=== PATIENT | male | born 1970 | race Caucasian/White ===

== ENCOUNTER 2021-06-05 15:58 | Outpatient (REF) | payer MEDICARE, MEDICAID, SELFPAY ==
[2021-06-05 16:49] LABS: Anion Gap 13 (12-20); Blood Urea Nitrogen 15 mg/dL (9-16); Calcium 9.9 mg/dL (8.4-10.2); Carbon Dioxide 32 mmol/L (22-29); Chloride 100 mmol/L (96-108); Estimated Glomerular Filt Rate > 60; Glucose Random 101 mg/dL (60-115); Potassium 4.3 mmol/L (3.3-5.1); Sodium 141 mmol/L (135-145)
[2021-06-05 17:09] LABS: Syphilis Screen Nonreactive (Nonreactive)
[2021-06-05 17:11] LABS: Thyroid Stimulating Hormone 1.56 uIU/mL (0.32-4.0)
[2021-06-05 17:36] LABS: Folate 15.7 ng/mL (> or = 4.0); Vitamin B12 900 pg/mL (200-900)
== END 2021-06-05 15:59 | disposition home or self-care (01) ==
LOC: HO.LAB 15:58
PROVIDERS: PCP Internal Medicine; Visit Provider Psychiatry & Neurology Neurology
DX: F03.90 Unspecified dementia, unspecified severity, without behavioral disturbance, psychotic disturbance, mood disturbance, and anxiety (principal)
CPT/HCPCS: 36415; 80048; 82607; 82746; 84443; 86780

== ENCOUNTER 2021-06-18 10:45 | Outpatient (REF) | payer MEDICARE, MEDICAID, SELFPAY ==
--- NOTE | ~2021-06-18 | CT_ITS ---
EXAMINATION: CT HEAD WITHOUT CONTRAST CLINICAL INFORMATION: Dementia. COMPARISON: None TECHNIQUE: Contiguous axial imaging was performed from the skull base to vertex without intravenous administration of contrast. This CT examination was performed using dose optimization techniques as appropriate, variously including the following: *Automated exposure control *Adjustment of mA and/or kV according to patient size (this includes techniques or standardized protocols for targeted exams where dose is matched to indication/reason for exam; i.e. extremities or head) *Use of iterative reconstruction technique DLP: 812 mGy-cm FINDINGS: There is no evidence of acute intracranial hemorrhage or territorial infarction. No abnormal mass effect or midline shift is seen. Martines to white matter differentiation is well preserved. No extra-axial fluid collections are identified. The ventricles are normal in size. There is no abnormal attenuation within the brain parenchyma. There is hyperostosis frontalis interna. The osseous structures and soft tissues are otherwise normal. There is very mild mucosal thickening of the right maxillary sinus. Remaining paranasal sinuses appear clear. The mastoid air cells are well aerated and clear. CT/CT head/brain wo con IMPRESSION: No acute intracranial pathology.
== END 2021-06-18 10:46 | disposition home or self-care (01) ==
LOC: HO.CT 10:45
PROVIDERS: PCP Internal Medicine; Visit Provider Psychiatry & Neurology Neurology
DX: F03.90 Unspecified dementia, unspecified severity, without behavioral disturbance, psychotic disturbance, mood disturbance, and anxiety (principal)
CPT/HCPCS: 70450

== ENCOUNTER 2021-12-04 12:05 | Emergency (ER) | payer MEDICARE, MEDICAID, SELFPAY ==
--- NOTE | ~2021-12-04 | XR_ITS ---
EXAMINATION: XR SHOULDER, RIGHT CLINICAL INFORMATION: Pain COMPARISON: None TECHNIQUE: Three views of the right shoulder. FINDINGS: Bone alignment is normal. No fracture or dislocation is seen. The joint spaces are normal. There is soft tissue calcification adjacent to the greater tuberosity. XR/XR shoulder RT min 2V IMPRESSION: Soft tissue calcification adjacent to the greater tuberosity suggestive of calcific tendinitis or bursitis.
[2021-12-04 12:08] VITALS: BP 112/80; PULSE 109; RESP 16; TEMP 36.1; O2SAT 98; BMI 25.8
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
== END 2021-12-04 14:31 | disposition home or self-care (01) ==
PROVIDERS: Emergency Provider Emergency Medicine Emergency Medical Services; PCP Pediatrics
DX: S46.911A Strain of unspecified muscle, fascia and tendon at shoulder and upper arm level, right arm, initial encounter (principal); M75.51 Bursitis of right shoulder; M79.601 Pain in right arm; X58.XXXA Exposure to other specified factors, initial encounter; Y93.9 Activity, unspecified; Y92.9 Unspecified place or not applicable; Y99.9 Unspecified external cause status; Z79.899 Other long term (current) drug therapy
CPT/HCPCS: 73030; 99283; 99284

== ENCOUNTER 2022-03-09 07:07 | Emergency (ER) | payer MEDICARE, MEDICAID, SELFPAY ==
--- NOTE | 2022-03-09 | ECG_ITS ---
Test Reason : CHEST PAIN Blood Pressure : / mmHG Vent. Rate : 093 BPM Atrial Rate : 093 BPM P-R Int : 158 ms QRS Dur : 106 ms QT Int : 362 ms P-R-T Axes : 069 -36 008 degrees QTc Int : 450 ms Normal sinus rhythm Left axis deviation Minimal voltage criteria for LVH, may be normal variant ( [place] product ) Abnormal ECG When compared with ECG of 27-JUN-2011 13:05, T wave inversion less evident in Inferior leads Referred By: Colton Gray Electronically Signed By:Agustín Fisher
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
[2022-03-09 07:39] VITALS: BP 144/88; PULSE 100; RESP 18; TEMP 36.8; O2SAT 95
[2022-03-09 07:42] VITALS: BP 134/84; BP 142/88; PULSE 112; PULSE 78; RESP 18; TEMP 36.8; O2SAT 95; O2SAT 98; BMI 26.4
[2022-03-09 08:52] LABS: Glucose, Whole Blood 305 mg/dL (60-115)
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
[2022-03-09 09:43] LABS: COVID-19 Test Negative (Negative); IDNOW Serial# 16C4AD1C
== END 2022-03-09 09:39 | disposition home or self-care (01) ==
PROVIDERS: Emergency Provider Emergency Medicine
DX: F03.91 Unspecified dementia, unspecified severity, with behavioral disturbance (principal); F33.1 Major depressive disorder, recurrent, moderate; F25.1 Schizoaffective disorder, depressive type; Z20.822 Contact with and (suspected) exposure to COVID-19; Z79.899 Other long term (current) drug therapy
CPT/HCPCS: 82947; 87635; 93005; 99283

== ENCOUNTER 2022-05-03 15:07 | Emergency (ER) | payer MEDICARE, MEDICAID, SELFPAY ==
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
[2022-05-03 15:47] VITALS: BP 118/78; BP 120/82; PULSE 80; PULSE 90; RESP 18; TEMP 36.6; O2SAT 95; O2SAT 97; BMI 26.1
--- NOTE | 2022-05-03 16:32 | PC.NURSE ---
attempted to contact staff from [facility] in order to continue medications, andres in contacts no longer as employee but he is obtaining contact info and will call us.
--- NOTE | 2022-05-03 18:19 | PHA.MEDREC ---
Pharmacy Consult ? Medication Reconciliation Pharmacy has completed the medication reconciliation. Completed med rec based on claim history. Patients alf was supposed to call, hasnt yet. Pharmacy closed until Thursday likely due to holiday
[2022-05-03 20:58] LABS: MANUAL DIFF FLAG NO
[2022-05-03 21:01] LABS: Basophils Percent Auto 0.4 % (0-2); Eosinophils Absolute Auto 0.1 X10*3/uL (0.0-0.4); Eosinophils Percent Auto 0.9 % (0-4); Hematocrit 40.1 % (42.0-52.0); Hemoglobin 13.5 g/dl (14.0-18.0); Imm Gran Abs Auto 0.03 X10*3/uL (0.00-0.03); Imm Gran Pct Auto 0.6 % (0.0-0.4); Lymphocytes Absolute Auto 2.2 X10*3/uL (1.2-4.9); Mean Corpuscular HGB Conc 33.7 g/dl (31.0-36.0); Mean Corpuscular Hemoglobin 30.8 pg (27.0-33.0); Mean Corpuscular Volume 91.3 fL (80.0-98.0); Mean Platelet Volume 10.9 fL (9.4-12.4); Monocytes Absolute Auto 0.4 X10*3/uL (0.1-1.2); Monocytes Percent Auto 8.1 % (2-11); Neutrophils Absolute Auto 2.7 x10*3/uL (2.0-8.3); Platelet Count 189 X10*3/uL (160-400); Red Blood Count 4.39 X10*6/uL (4.60-5.80); Red Cell Distribution Width 13.1 % (11.0-16.0); White Blood Count 5.4 X10*3/uL (4.8-10.8)
[2022-05-03 21:22] LABS: Alanine Aminotransferase 20 U/L (0-40); Albumin Level 4.6 g/dL (3.5-5.0); Alkaline Phosphatase 89 U/L (39-117); Anion Gap 12 (12-20); Aspartate Amino Transferase 15 U/L (5-37); Bilirubin Total 0.3 mg/dL (0.0-1.0); Blood Urea Nitrogen 15 mg/dL (9-16); Calcium 9.9 mg/dL (8.4-10.2); Carbon Dioxide 32 mmol/L (22-29); Chloride 96 mmol/L (96-108); Estimated Glomerular Filt Rate > 60; Glucose Random 259 mg/dL (60-115); Magnesium 1.8 mg/dL (1.6-2.6); Potassium 4.3 mmol/L (3.3-5.1); Sodium 136 mmol/L (135-145); Total Protein 7.4 g/dL (6.5-8.0)
[2022-05-03 21:26] LABS: Valproate 35.7 mcg/mL (50.0-100.0)
[2022-05-03 21:29] LABS: COVID-19 Test Negative (Negative); IDNOW Serial# 55D5AD1C
[2022-05-03 22:21] LABS: Appearance Urine CLEAR; Color Urine YELLOW; Glucose Urine UA >=1000 MG/DL (NEG); Leukocyte Esterase Urine NEG (NEG); Nitrite Urine NEG (NEG); Urine Blood NEG (NEG); Urine Ketones NEG (NEG); Urine Protein NEG (NEG-TRACE)
[2022-05-03 22:33] LABS: Amphetamine Screen Urine Not Detected (Not Detect); Barbiturates, Urine Not Detected (Not Detect); Benzodiazepines Screen Urine Not Detected (Not Detect); Cannabinoid Screen Urine Not Detected (Not Detect); Cocaine Screen Urine Not Detected (Not Detect); Fentanyl, urine Not Detected (Not Detect); Opiate Screen Urine Not Detected (Not Detect); Phencyclidine Screen Urine Not Detected (Not Detect)
[2022-05-03 23:19] LABS: RBC Urine 0-2 /HPF (0); Squamous Epithelial Cell Urine TRACE /LPF; WBC Urine 0 /HPF (0-4)
--- NOTE | 2022-05-04 | ECG_ITS ---
Test Reason : MED CLEARANCE Blood Pressure : / mmHG Vent. Rate : 080 BPM Atrial Rate : 080 BPM P-R Int : 164 ms QRS Dur : 110 ms QT Int : 408 ms P-R-T Axes : 062 -34 -02 degrees QTc Int : 470 ms Normal sinus rhythm Left axis deviation Minimal voltage criteria for LVH, may be normal variant ( [place] product ) Abnormal ECG When compared with ECG of 09-MAR-2022 07:36, No significant change was found Referred By: Zaira Alvarado Electronically Signed By:KIMBERLY ROSENBERG
[2022-05-04 00:34] VITALS: BP 127/82; PULSE 84; RESP 16; TEMP 36.4; O2SAT 99
[2022-05-04 01:06] LABS: Ethanol < 10 mg/dL
[2022-05-04] MEDS: Levothyroxine Sodium 88 MCG TABLET PO (06:25)
--- NOTE | 2022-05-04 06:40 | PC.NURSE ---
Patient slept through the night, no distress observed/reported, behavior non concerning, medication compliant, disposition per [facility] is section 12 inpatient bed search, vss, will continue to monitor.
--- NOTE | 2022-05-04 07:21 | PC.NURSE ---
patient appears to remain asleep at present respirations are even and unlabored patient appears in no distress
[2022-05-04] MEDS: Benztropine Mesylate 1 MG TABLET PO ×2 (09:06→20:03)
[2022-05-04] MEDS: Docusate Sodium 100 MG/10 ML LIQUID PO (09:10)
[2022-05-04] MEDS: Divalproex Sodium ER 500 MG TAB.ER.24H 1000 MG PO (09:10)
[2022-05-04] MEDS: HaloperidoL 5 MG TABLET PO ×2 (09:10→20:02)
[2022-05-04] MEDS: HaloperidoL 5 MG TABLET 10 MG PO ×2 (09:11→20:02)
[2022-05-04] MEDS: Donepezil HCl 5 MG TABLET PO (09:11)
[2022-05-04] MEDS: OXcarbazepine 150 MG TABLET PO ×2 (09:11→20:02)
[2022-05-04] MEDS: PARoxetine HCL 40 MG TABLET PO (11:07)
[2022-05-04 14:08] VITALS: BP 112/70; PULSE 92; O2SAT 99
--- NOTE | 2022-05-04 16:24 | PC.NURSE ---
panchito asp net programmer from [facility] called to check in, states some signs client may escalate to acting out behavior are talking about money or cars and or having a predatory looking stare per panchito.
--- NOTE | 2022-05-04 18:04 | PC.NURSE ---
patient came out of room after new patient transitioned into pod and asked what t/w was talking about-t/w responded patient in main ED. patient stared irritably at this group underwriter (ironically staff from [facility] just mentioned staring hours ago) and t/w asked if he was hungry, patient responded no and had recently been provided a sandwich- so unclear if this is paranoia or something else. patient had angry look resubmitted his earphones (perhaps overstimulated) will continue to monitor. patient declined offered prn med.
--- NOTE | 2022-05-05 05:43 | PC.NURSE ---
Patient slept through the night, no distress observed/reported, behavior non concerning, medication compliant, disposition per [facility] is section 12 inpatient bed search, vss, will continue to monitor.
[2022-05-05 05:46] VITALS: BP 125/71; PULSE 71; RESP 16; TEMP 36.5; O2SAT 99
[2022-05-05] MEDS: Levothyroxine Sodium 88 MCG TABLET PO (06:15)
--- NOTE | 2022-05-05 07:04 | PC.NURSE ---
patient appears to remain asleep at present respirations are even and unlabored patient appears in no distress
--- NOTE | 2022-05-05 10:39 | PC.NURSE ---
left message at senior care in regards to staff bringing in wellbutrin sr 200 as it is non formulary.
[2022-05-05] MEDS: OXcarbazepine 150 MG TABLET PO (11:07)
[2022-05-05] MEDS: PARoxetine HCL 40 MG TABLET PO (11:07)
[2022-05-05] MEDS: HaloperidoL 5 MG TABLET 10 MG PO ×2 (11:14→20:29)
[2022-05-05] MEDS: Docusate Sodium 100 MG/10 ML LIQUID PO (11:14)
[2022-05-05] MEDS: HaloperidoL 5 MG TABLET PO ×2 (11:14→20:29)
[2022-05-05] MEDS: Donepezil HCl 5 MG TABLET PO (11:15)
[2022-05-05] MEDS: Benztropine Mesylate 1 MG TABLET PO ×2 (11:15→20:29)
[2022-05-05] MEDS: Divalproex Sodium ER 500 MG TAB.ER.24H 1000 MG PO (11:15)
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
[2022-05-05 14:11] LABS: COVID-19 Test Negative (Negative); IDNOW Serial# 55D5AD1C
[2022-05-05 15:29] VITALS: BP 112/69; PULSE 97; RESP 17; TEMP 36.1; O2SAT 98
[2022-05-05 16:03] LABS: Glucose, Whole Blood 219 mg/dL (60-115)
[2022-05-05] MEDS: carBAMazepine 200 MG TABLET PO (20:29)
[2022-05-06] MEDS: Levothyroxine Sodium 88 MCG TABLET PO (06:17)
--- NOTE | 2022-05-06 06:25 | PC.NURSE ---
Patient slept through the night, no distress observed/reported, behavior non concerning, medication compliant, disposition per [facility] is section 12 inpatient bed search, vss, POC at 0620 was 195, will continue to monitor.
[2022-05-06 06:28] LABS: Glucose, Whole Blood 195 mg/dL (60-115)
[2022-05-06 06:31] VITALS: BP 118/77; PULSE 85; RESP 16; TEMP 36.3; O2SAT 100
--- NOTE | 2022-05-06 07:21 | PC.NURSE ---
patient appears to remain asleep at present respirations are even and unlabored patient appears in no distress
[2022-05-06 09:04] VITALS: RESP 18
[2022-05-06] MEDS: Divalproex Sodium ER 500 MG TAB.ER.24H 1000 MG PO (11:10)
[2022-05-06] MEDS: carBAMazepine 200 MG TABLET PO ×2 (11:12→21:44)
[2022-05-06] MEDS: HaloperidoL 5 MG TABLET 10 MG PO ×2 (11:12→21:12)
[2022-05-06] MEDS: HaloperidoL 5 MG TABLET PO ×2 (11:12→21:12)
[2022-05-06] MEDS: PARoxetine HCL 40 MG TABLET PO (11:13)
[2022-05-06] MEDS: Benztropine Mesylate 1 MG TABLET PO ×2 (11:13→21:12)
[2022-05-06] MEDS: Donepezil HCl 5 MG TABLET PO (11:13)
[2022-05-06] MEDS: Acetaminophen 325 MG TABLET 650 MG PO (12:17)
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
[2022-05-06 19:19] VITALS: BP 141/86; PULSE 100; RESP 16; TEMP 36.5; O2SAT 98
[2022-05-07] MEDS: Levothyroxine Sodium 88 MCG TABLET PO (05:37)
[2022-05-07 06:37] LABS: Glucose, Whole Blood 170 mg/dL (60-115)
--- NOTE | 2022-05-07 07:01 | PC.NURSE ---
Patient slept through the night, no distress observed/reported, behavior non concerning, medication compliant, disposition per [facility] is section 12 inpatient bed search, vss, POC at 0633 was 170, will continue to monitor.
--- NOTE | 2022-05-07 07:25 | PC.NURSE ---
patient appears to remain asleep at this time respirations are even and unlabored patient appears in no distress
[2022-05-07 08:09] VITALS: RESP 17
--- NOTE | 2022-05-07 15:10 | PC.NURSE ---
Individual OT tx completed this date. Pt is receptive to sensory tool, word finds, and coloring pages. Attempt made to engage pt however pt continues to state I want to go home.
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
[2022-05-07 19:47] VITALS: BP 128/85; PULSE 117; RESP 16; TEMP 36.3; O2SAT 96
[2022-05-07] MEDS: Benztropine Mesylate 1 MG TABLET PO (20:19)
[2022-05-07] MEDS: HaloperidoL 5 MG TABLET PO (20:19)
[2022-05-07] MEDS: HaloperidoL 5 MG TABLET 10 MG PO (20:19)
[2022-05-07] MEDS: carBAMazepine 200 MG TABLET 400 MG PO (20:33)
[2022-05-08] MEDS: Levothyroxine Sodium 88 MCG TABLET PO (06:17)
[2022-05-08 06:21] VITALS: BP 113/77; PULSE 84; RESP 16; TEMP 35.7; O2SAT 98
[2022-05-08 06:22] LABS: Glucose, Whole Blood 196 mg/dL (60-115)
--- NOTE | 2022-05-08 06:27 | PC.NURSE ---
Patient slept through the night, no distress observed/reported, behavior non concerning, medication compliant, disposition per [facility] is section 12 inpatient bed search, vss, POC at 0618 was 196, will continue to monitor.
[2022-05-08] MEDS: Donepezil HCl 5 MG TABLET PO (10:05)
[2022-05-08] MEDS: HaloperidoL 5 MG TABLET 10 MG PO ×2 (10:05→20:18)
[2022-05-08] MEDS: HaloperidoL 5 MG TABLET PO ×2 (10:05→20:18)
[2022-05-08] MEDS: Divalproex Sodium ER 500 MG TAB.ER.24H PO (10:06)
[2022-05-08] MEDS: PARoxetine HCL 40 MG TABLET PO (10:06)
[2022-05-08] MEDS: Benztropine Mesylate 1 MG TABLET PO ×2 (10:06→20:33)
[2022-05-08] MEDS: carBAMazepine 200 MG TABLET 400 MG PO ×2 (10:06→20:18)
--- NOTE | 2022-05-08 10:48 | PC.NURSE ---
Pt has been in room mostly since this RN arrival at 7am. Was not interested in eating breakfast, took meds easily. Stated generally that he feels better . SKin pwd. moves slowly but steady. Awaits placement by N.
--- NOTE | 2022-05-08 14:53 | PC.NURSE ---
Seen by LORETTA.
--- NOTE | 2022-05-08 15:10 | PC.NURSE ---
took first few bites of food today and a cup of coffee followed by visit from Parachutist/Combatant Diver Qualified. Parachutist/Combatant Diver Qualified reports that patient didn't feel much like talking.
--- NOTE | 2022-05-08 15:23 | PC.NURSE ---
Pt meeting with [facility] rep, unable to engage pt in OT tx session this date.
--- NOTE | 2022-05-08 17:13 | PC.NURSE ---
Maria Luisa Tran, cnc lathe programmer states that patient can be discharged back after the nursing home has a meeting. they await details of discharge (new meds) from [facility]. [phone]
--- NOTE | 2022-05-08 18:25 | PC.NURSE ---
pt has been increasingly active, pleasant, taking PO, smiling, joking with staff
[2022-05-08 18:33] LABS: Glucose, Whole Blood 227 mg/dL (60-115)
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
--- NOTE | 2022-05-08 18:44 | MHC.CARE ---
CARE Team calls Maria Luisa, homeland security program specialist to discuss details of discharging pt. Her VM box is full.
[2022-05-09] MEDS: Levothyroxine Sodium 88 MCG TABLET PO (05:36)
[2022-05-09 05:45] VITALS: BP 109/74; PULSE 81; RESP 16; TEMP 36.4; O2SAT 99
[2022-05-09 05:47] LABS: Glucose, Whole Blood 170 mg/dL (60-115)
--- NOTE | 2022-05-09 06:17 | PC.NURSE ---
Patient slept through the night, no distress observed/reported, behavior non concerning, medication compliant, Depakote discontinued, disposition per [facility] is section 12 inpatient bed search, however, patient may be discharged back to senior care, DWIGHT, POC at 0542 was 170, will continue to monitor.
--- NOTE | 2022-05-09 07:10 | PC.NURSE ---
patient appears to remain asleep at present respirations are even and unlabored patient appears in no distress
--- NOTE | 2022-05-09 09:41 | MHC.CARE ---
CARE Team placed call to [employer] electrician constructor supervisor requesting ETA for discharge. She stated that she will call back after a med reconciliation.
--- NOTE | 2022-05-09 13:21 | PC.NURSE ---
Maria Luisa contacted [phone]- No answer
== END 2022-05-09 13:39 | disposition home or self-care (01) ==
PROVIDERS: Physician Assistant; Emergency Provider Emergency Medicine Emergency Medical Services
DX: F25.9 Schizoaffective disorder, unspecified (principal); F79 Unspecified intellectual disabilities; Z20.822 Contact with and (suspected) exposure to COVID-19; F32.A Depression, unspecified; F91.9 Conduct disorder, unspecified; E11.9 Type 2 diabetes mellitus without complications; I10 Essential (primary) hypertension; Z79.899 Other long term (current) drug therapy
CPT/HCPCS: 36415; 80053; 80164; 80307; 81001; 82077; 82947; 83735; 85025; 87635; 93005; 99285

== ENCOUNTER 2022-05-15 13:44 | Outpatient (REF) | payer MEDICARE, MEDICAID, SELFPAY ==
[2022-05-15 13:59] LABS: MANUAL DIFF FLAG NO
[2022-05-15 14:41] LABS: Basophils Percent Auto 0.4 % (0-2); Eosinophils Absolute Auto 0.2 X10*3/uL (0.0-0.4); Eosinophils Percent Auto 3.5 % (0-4); Hematocrit 39.2 % (42.0-52.0); Hemoglobin 13.4 g/dl (14.0-18.0); Imm Gran Abs Auto 0.01 X10*3/uL (0.00-0.03); Imm Gran Pct Auto 0.2 % (0.0-0.4); Lymphocytes Absolute Auto 2.2 X10*3/uL (1.2-4.9); Lymphocytes Percent Auto 47.5 % (20-40); Mean Corpuscular HGB Conc 34.2 g/dl (31.0-36.0); Mean Corpuscular Hemoglobin 30.9 pg (27.0-33.0); Mean Corpuscular Volume 90.5 fL (80.0-98.0); Mean Platelet Volume 11.2 fL (9.4-12.4); Monocytes Absolute Auto 0.5 X10*3/uL (0.1-1.2); Monocytes Percent Auto 10.5 % (2-11); Neutrophils Absolute Auto 1.7 x10*3/uL (2.0-8.3); Neutrophils Percent Auto 37.9 % (45-73); Platelet Count 177 X10*3/uL (160-400); Red Blood Count 4.33 X10*6/uL (4.60-5.80); Red Cell Distribution Width 12.3 % (11.0-16.0); White Blood Count 4.6 X10*3/uL (4.8-10.8)
[2022-05-15 15:16] LABS: Carbamazepine Tegretol 11.1 mcg/mL (5.0-12.0)
== END 2022-05-15 13:45 | disposition home or self-care (01) ==
LOC: HO.LAB 13:44
PROVIDERS: Visit Provider Clinical Nurse Specialist Psychiatric/Mental Health, Adult
DX: Z79.899 Other long term (current) drug therapy (principal)
CPT/HCPCS: 36415; 80156; 85025

== ENCOUNTER 2022-05-25 11:11 | Emergency (ER) | payer MEDICARE, MEDICAID, SELFPAY ==
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
[2022-05-25 11:18] VITALS: BP 136/85; PULSE 120; RESP 18; TEMP 36.9; O2SAT 100; BMI 19.8
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
--- NOTE | 2022-05-25 11:25 | PC.NURSE ---
RN aware poc 271
[2022-05-25 11:26] LABS: Glucose, Whole Blood 271 mg/dL (60-115)
[2022-05-25 12:10] LABS: MANUAL DIFF FLAG NO
[2022-05-25 12:11] LABS: Basophils Percent Auto 0.7 % (0-2); Eosinophils Absolute Auto 0.1 X10*3/uL (0.0-0.4); Eosinophils Percent Auto 1.1 % (0-4); Hematocrit 39.5 % (42.0-52.0); Hemoglobin 13.2 g/dl (14.0-18.0); Lymphocytes Absolute Auto 1.4 X10*3/uL (1.2-4.9); Mean Corpuscular HGB Conc 33.4 g/dl (31.0-36.0); Mean Corpuscular Hemoglobin 30.4 pg (27.0-33.0); Mean Platelet Volume 9.2 fL (9.4-12.4); Monocytes Absolute Auto 0.3 X10*3/uL (0.1-1.2); Monocytes Percent Auto 5.7 % (2-11); Neutrophils Absolute Auto 2.8 x10*3/uL (2.0-8.3); Neutrophils Percent Auto 62.5 % (45-73); Platelet Count 332 X10*3/uL (160-400); Red Blood Count 4.34 X10*6/uL (4.60-5.80); Red Cell Distribution Width 12.7 % (11.0-16.0); White Blood Count 4.5 X10*3/uL (4.8-10.8)
[2022-05-25] MEDS: Bacitracin Oint 14 GM TUBE 1 APPL TOPICAL (12:11)
[2022-05-25 12:36] LABS: COVID-19 Test Negative (Negative)
[2022-05-25 12:51] LABS: Ethanol < 10 mg/dL
[2022-05-25 12:54] LABS: Acetaminophen LAB < 1 mcg/mL (<30); Alanine Aminotransferase 19 U/L (0-40); Albumin Level 4.4 g/dL (3.5-5.0); Alkaline Phosphatase 131 U/L (39-117); Anion Gap 16 (12-20); Aspartate Amino Transferase 18 U/L (5-37); Bilirubin Direct < 0.2 mg/dL (0.0-0.5); Bilirubin Total 0.2 mg/dL (0.0-1.0); Blood Urea Nitrogen 15 mg/dL (9-16); Calcium 9.5 mg/dL (8.4-10.2); Carbon Dioxide 26 mmol/L (22-29); Chloride 101 mmol/L (96-108); Creatinine Clr Calc Pharmacy 72.3; Estimated Glomerular Filt Rate > 60; Glucose Random 287 mg/dL (60-115); Potassium 4.7 mmol/L (3.3-5.1); Salicylate < 5.0 mg/dL (15-30); Sodium 138 mmol/L (135-145); Total Protein 7.5 g/dL (6.5-8.0)
--- NOTE | 2022-05-25 15:21 | PHA.MEDREC ---
Pharmacy Consult ? Medication Reconciliation Pharmacy has completed the medication reconciliation. Patient was sent with list from [facility]; [facility]. Kemi Fleming, [employer]
--- NOTE | 2022-05-25 15:30 | PC.NURSE ---
smart sheet completed
--- NOTE | 2022-05-25 20:30 | PC.NURSE ---
Keyona from care team at bedside speaking with patient.
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
--- NOTE | 2022-05-25 21:42 | PC.NURSE ---
patient moved to ED bed 14
[2022-05-25] MEDS: HaloperidoL 5 MG TABLET 10 MG PO (21:51)
[2022-05-25] MEDS: HaloperidoL 5 MG TABLET PO (21:52)
[2022-05-25] MEDS: Benztropine Mesylate 1 MG TABLET PO (21:52)
[2022-05-25 23:37] VITALS: BP 124/78; PULSE 102; RESP 18; TEMP 36.3; O2SAT 96
--- NOTE | 2022-05-25 23:48 | PC.NURSE ---
[facility] referral completed by this RN, no assessment ocumented by previous shift RN. pt resting comfortably at this time, all safety measures maintained
[2022-05-26 05:55] VITALS: RESP 16
[2022-05-26 07:33] VITALS: BP 123/71; PULSE 88; RESP 18; TEMP 36.6; O2SAT 96
[2022-05-26] MEDS: LORazepam 1 MG TABLET PO (10:19)
[2022-05-26] MEDS: HaloperidoL 5 MG TABLET PO ×2 (10:20→20:47)
[2022-05-26] MEDS: Docusate Sodium 100 MG/10 ML LIQUID PO (10:20)
[2022-05-26] MEDS: Donepezil HCl 5 MG TABLET PO (10:20)
[2022-05-26] MEDS: HaloperidoL 5 MG TABLET 10 MG PO ×2 (10:20→20:47)
[2022-05-26] MEDS: Benztropine Mesylate 1 MG TABLET PO ×2 (10:20→20:47)
[2022-05-26 11:46] VITALS: BP 113/71; PULSE 102; RESP 15; O2SAT 96
[2022-05-26] MEDS: carBAMazepine 200 MG TABLET 400 MG PO (12:07)
[2022-05-26] MEDS: PARoxetine HCL 40 MG TABLET PO (12:07)
--- NOTE | 2022-05-26 13:18 | MHC.CARE ---
CARE spoke with Fariha manuel ([phone]) who is covering the staff. She stated Pt overall has been doing well with intermittent medication compliance recently. She did not report other behavioral outbursts. She expressed concern that she wanted Pt sectioned and t/w explained limitations regarding the ED. Plan for psychiatric to be consulted regarding plan of care.
--- NOTE | 2022-05-26 14:30 | PC.NURSE ---
Pt seen this date for individual OT tx session. Pt denies and feelings of anger/aggression and states he feels better . Translation provided by Georgian speaking staff member. Pt provided with sensory item and sticker puzzle to complete with assistance from caregiver.
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
[2022-05-26 15:35] VITALS: BP 112/78; PULSE 101; RESP 16; O2SAT 100
[2022-05-26] MEDS: Ibuprofen 200 MG TABLET PO (17:26)
--- NOTE | 2022-05-26 17:48 | MHC.CARE ---
CARE Team reaches out to Fariha from pt's care home who reports that medication changes require order and requests TW to call their nurse, Sasha [phone]; plan is for Sasha to email an order for ED provider to sign and then pt can discharge back to with the staff who are present here with him in the ED.
--- NOTE | 2022-05-26 19:00 | MHC.CARE ---
CARE Team coordinates d/c plan with Sasha Poole [phone] nursing resident from [facility]. Plan is for pt to get him 2100 dose of Zyprexa 5mg and then discharge home with the staff member who is currently present in the ED. Rob Black has put in script at [facility]. Sasha reports that pt needs a buckle arabella to safely transport back to the senior care. Plan is for the staff member here in the ED to go to the senior care and get the buckle arabella and return to the ED and transport pt back to the senior care at 2100. Dr. Gill has signed order for Zyprexa and this will be given to the senior care staff to take.
[2022-05-26] MEDS: OLANZapine 5 MG TABLET PO (20:47)
== END 2022-05-26 21:13 | disposition home or self-care (01) ==
PROVIDERS: Nurse Practitioner Family; Emergency Provider Emergency Medicine
DX: S22.41XA Multiple fractures of ribs, right side, initial encounter for closed fracture (principal); F79 Unspecified intellectual disabilities; F25.0 Schizoaffective disorder, bipolar type; W19.XXXA Unspecified fall, initial encounter; Y93.9 Activity, unspecified; Y92.9 Unspecified place or not applicable; Y99.9 Unspecified external cause status; Z20.822 Contact with and (suspected) exposure to COVID-19; Z79.899 Other long term (current) drug therapy
CPT/HCPCS: 36415; 71101; 80048; 80076; 80143; 80179; 80307; 82077; 82947; 85025; 87635; 99285

== ENCOUNTER 2022-08-15 13:58 | Emergency (ER) | payer MEDICARE, MEDICAID, SELFPAY ==
--- NOTE | 2022-08-15 | ECG_ITS ---
Test Reason : CHEST PAIN Blood Pressure : / mmHG Vent. Rate : 089 BPM Atrial Rate : 089 BPM P-R Int : 166 ms QRS Dur : 116 ms QT Int : 370 ms P-R-T Axes : 061 -34 -05 degrees QTc Int : 450 ms Normal sinus rhythm Left anterior fascicular block Intra-ventricular conduction delay Nonspecific T wave abnormality Abnormal ECG When compared with ECG of 04-MAY-2022 10:01, No significant change was found Referred By: Alecia Perez Electronically Signed By:HEMALATHA CORNELIUS MD
--- NOTE | ~2022-08-15 | CT_ITS ---
EXAMINATION: CT ABDOMEN AND PELVIS WITH CONTRAST CLINICAL INFORMATION: Abdominal pain, hyperglycemia COMPARISON: None TECHNIQUE: Multidetector volumetric images were obtained from the superior aspect of the liver through the pubic symphysis following administration 85 mL of Omnipaque 350 intravenous contrast. Sagittal and coronal reformatted images were obtained on the technologist's workstation. Oral contrast: No This CT examination was performed using dose optimization techniques as appropriate, variously including the following: *Automated exposure control *Adjustment of mA and/or kV according to patient size (this includes techniques or standardized protocols for targeted exams where dose is matched to indication/reason for exam; i.e. extremities or head) *Use of iterative reconstruction technique DLP: 452 mGy-cm FINDINGS: Motion degraded exam limiting evaluation, particularly involving the pancreas, spleen, liver, and adrenal glands. LUNG BASES: Unremarkable. ABDOMINAL AND PELVIC WALL: Unremarkable. LIVER AND BILIARY TREE: Hypoattenuating hepatic parenchyma compatible with hepatic steatosis. GALLBLADDER: Status post cholecystectomy. PANCREAS: Unremarkable. SPLEEN: Unremarkable. ADRENAL GLANDS: Unremarkable. KIDNEYS AND URETERS: Unremarkable. GASTROINTESTINAL TRACT: Desiccated stool ball within the rectum measuring approximately 6.1 cm with mild rectal wall thickening. Overall large colonic stool burden. Colonic diverticulosis without evidence of diverticulitis. Normal appendix. VASCULAR: Unremarkable. LYMPH NODES/PERITONEUM: No lymphadenopathy. FREE FLUID: None. BLADDER: Unremarkable. PELVIC VISCERA: Unremarkable. OSSEOUS STRUCTURES: Unremarkable. CT/CT abdomen pelvis w IV con IMPRESSION: Overall large colonic stool burden with a 6.1 cm desiccated stool ball within the rectum with mild rectal wall thickening, which could potentially reflect stercoral colitis if clinical symptoms are appropriate. Hepatic steatosis. Exam is motion degraded limiting evaluation, particularly of multiple solid organs.
[2022-08-15 14:10] VITALS: BP 129/80; BP 144/78; PULSE 107; PULSE 112; RESP 16; TEMP 36.7; O2SAT 97; BMI 24.3
[2022-08-15 14:37] LABS: Glucose, Whole Blood 404 mg/dL (60-115)
--- NOTE | 2022-08-15 14:49 | PC.NURSE ---
kody pierce) aware of plan of care.
[2022-08-15 14:54] LABS: COVID-19 Test Negative (Negative); IDNOW Serial# 16C4AD1C
[2022-08-15 15:19] LABS: MANUAL DIFF FLAG NO
[2022-08-15 15:20] LABS: Basophils Percent Auto 0.4 % (0-2); Eosinophils Absolute Auto 0.1 X10*3/uL (0.0-0.4); Eosinophils Percent Auto 1.3 % (0-4); Hemoglobin 12.5 g/dl (14.0-18.0); Imm Gran Abs Auto 0.02 X10*3/uL (0.00-0.03); Imm Gran Pct Auto 0.4 % (0.0-0.4); Lymphocytes Absolute Auto 1.7 X10*3/uL (1.2-4.9); Lymphocytes Percent Auto 38.3 % (20-40); Mean Corpuscular HGB Conc 34.7 g/dl (31.0-36.0); Mean Corpuscular Hemoglobin 29.8 pg (27.0-33.0); Mean Corpuscular Volume 85.9 fL (80.0-98.0); Mean Platelet Volume 10.2 fL (9.4-12.4); Monocytes Absolute Auto 0.4 X10*3/uL (0.1-1.2); Neutrophils Absolute Auto 2.3 x10*3/uL (2.0-8.3); Neutrophils Percent Auto 51.6 % (45-73); Platelet Count 166 X10*3/uL (160-400); Red Blood Count 4.19 X10*6/uL (4.60-5.80); Red Cell Distribution Width 12.7 % (11.0-16.0); White Blood Count 4.5 X10*3/uL (4.8-10.8)
[2022-08-15 15:25] LABS: Prothrombin Time 10.9 SEC (10.0-13.1)
--- NOTE | 2022-08-15 15:39 | ED_ITS ---
HPI - Psych General Chief Complaint: General Medical <DOC Addison Last Filed: 08/15/22 20:48> Stated Complaint: AGGRESSIVE TOWARD [facility] <DOC Addison Last Filed: 08/15/22 20:48> Time Seen by Provider: 08/15/22 14:31 <DOC Addison Last Filed: 08/15/22 20:48> Source: patient and EMS <DOC Addison Last Filed: 08/15/22 20:48> Mode of arrival: EMS <DOC Addison Last Filed: 08/15/22 20:48> Limitations: no limitations <DOC Addison Last Filed: 08/15/22 20:48> History of Present Illness HPI Narrative: 51yoM c PMHx of intellectual disability, HTN, DM Type II not on any DM medications x years, hypothyroidism, mood disorder, anxiety, depression, PTSD, cycling bipolar disorder which increases in the spring/ summer and decreases in juan/winter presenting to the ED via EMS after he was sent from the skilled nursing for increased aggression toward the staff and chasing the staff for the past 2 days. when I discussed this with the patient he reports that someone in the skilled nursing is trying to take my house . I am unsure what he means by this. Otherwise he is endorsing a sore throat, body aches that are generalized t hroughout the entire body and abdominal pain. He denies any fevers, chills, dizziness, headaches, neck pain/ stiffness, trouble swallowing or breathing, nausea / vomiting, nasal congestion / rhinorrhea, chest pain or shortness of breath, dyspnea on exertion, orthopnea, palpitations, paresthesias, radiation of the abdominal pain, back pain, dysuria, hematuria, abnormal penile discharge, black or bloody stools, rashes, recent falls or trauma, lower extremity more calf tenderness or any other symptoms complaints or concerns at this time. <DOC Addison Last Filed: 08/15/22 20:48> MD complaint: other ( Aggressive behaviors) <DOC Addison Last Filed: 08/15/22 20:48> Onset (ago): day(s) (2) <DOC Addison Last Filed: 08/15/22 20:48> Duration: constant <DOC Addison Last Filed: 08/15/22 20:48> History of same: Yes <DOC Addison Last Filed: 08/15/22 20:48> Relieving factors: none <DOC Addison Last Filed: 08/15/22 20:48> Exacerbating factors: other ( see above) <DOC Addison Last Filed: 08/15/22 20:48> Associated psychiatric symptoms: none <DCO Addison Last Filed: 08/15/22 20:48> Associated symptoms: other ( generalized body aches, sore throat and abdominal pain) <DOC Addison Last Filed: 08/15/22 20:48> Treatments prior to arrival: none <DOC Addison Last Filed: 08/15/22 20:48> Related Data Home Medications: Home Medications Medication Instructions Recorded Confirmed benztropine 1 mg tablet 1 tab PO BID 05/03/22 08/15/22 docusate sodium 50 mg/5 mL oral 10 ml PO DAILY 05/03/22 08/15/22 liquid (Docu) donepezil 5 mg tablet 1 tab PO DAILY 05/03/22 08/15/22 haloperidol 10 mg tablet 1 tab PO BID 05/03/22 08/15/22 haloperidol 5 mg tablet 1 tab PO BID 05/03/22 08/15/22 levothyroxine 88 mcg tablet 1 tab PO DAILY 05/03/22 08/15/22 lorazepam 1 mg tablet 1 tab PO DAILY 05/03/22 08/15/22 paroxetine HCl 40 mg tablet 1 tab PO DAILY 05/03/22 08/15/22 acetaminophen 325 mg tablet 650 mg PO Q6H PRN PAIN/FEVER 05/25/22 08/15/22 (Tylenol) ammonium lactate 12 % topical cream 1 applic topical DAILY PRN Dry Skin 05/25/22 08/15/22 guaifenesin 100 mg/5 mL oral liquid 200 mg PO Q4H PRN Cough 05/25/22 08/15/22 ibuprofen 200 mg tablet 200 mg PO Q4H PRN PAIN/FEVER 05/25/22 08/15/22 lorazepam 1 mg tablet 1 tab PO Q6H PRN Anxiety 05/25/22 08/15/22 Previous Rx's Medication Instructions Recorded carbamazepine 200 mg tablet 400 mg PO BID #60 tabs 05/08/22 olanzapine 5 mg tablet 5 mg PO BID #14 tabs 05/26/22 <DOC Addison - Last Filed: 08/15/22 20:48> Allergies/Adverse Reactions: Allergies Allergy/AdvReac Type Severity Reaction Status Date / Time latex [LATEX] Allergy Unknown NOT Verified 05/08/22 15:23 APPLICABLE From SEROQUEL Allergy Unknown UNKNOWN Uncoded 07/19/20 15:21 SEASONAL ALLERGIES Allergy Unknown UNKNOWN Uncoded 07/19/20 15:21 <DOC Addison - Last Filed: 08/15/22 20:48> Review of Systems Review of Systems: Constitutional : No Fever, No Chills ENT/Mouth : + sore throat, No Ear Pain, No Nasal Congestion, No sore throat Eyes: No Eye Pain, No Swelling, No Redness Cardiovascular : No Chest Pain, No SOB Respiratory : No Cough, No Sputum, No Dyspnea Gastrointestinal : + abdominal pain, No ingestions, No Nausea, No Vomiting, No Diarrhea, No Hematochezia, No Melena Genitourinary : No Dysuria, No Urinary Frequency, No Hematuria Musculoskeletal : No Myalgias Skin : No Skin Lesions, No rash Neuro : No Weakness, No Numbness, No Paresthesias, No Dizziness, No Headache Psych : + aggression/Anxiety, No Depression, No SI, No thoughts of self injury, No HI, No AVH, Heme/Lymph: No Lymphadenopathy Endocrine : No Polyuria, No Polydipsia <DOC Addison - Last Filed: 08/15/22 20:48> Yes all other systems are reviewed and are negative <DOC Addison - Last Filed: 08/15/22 20:48> [facility] Past Medical History Attestation statement: The following information was validated with the patient. <DOC Addison Last Filed: 08/15/22 20:48> Source: old records reviewed and nursing notes reviewed <DOC Addison Last Filed: 08/15/22 20:48> Medical History: Medical History Dementia Depressive disorder Diabetes Diabetic retinopathy Hypothyroid Mild intellectual disabilities Psychotic disorder PTSD (post-traumatic stress disorder) Schizoaffective disorder, bipolar type <DOC Addison - Last Filed: 08/15/22 20:48> Social History Social History: Social History Alcohol intake: unknown Patient Tobacco Use Status: Tobacco use Unknown Use of substances other than those prescribed or required for medical reasons: Unknown Advance Directives: No Advance Directives Information Provided: Yes <DOC Addison - Last Filed: 08/15/22 20:48> Physical Exam Vital Signs: Vital Signs: Last Vital Signs Temp 97.3 F 08/16/22 09:39 Pulse 90 08/16/22 09:39 Resp 20 08/16/22 09:39 BP 137/93 H 08/16/22 09:39 Pulse Ox 95 08/16/22 09:39 O2 Del Method 08/16/22 09:39 BMI result Body Mass Index 24.3 vital signs have been reviewed as normal and appeared to be correct. Blood pressure normal. Heart rate normal. Respiration rate normal. Temperature normal. Oxygen saturation normal. <DOC Addison - Last Filed: 08/15/22 20:48> Vital Signs: Last Vital Signs Temp 97.3 F 08/16/22 09:39 Pulse 90 08/16/22 09:39 Resp 20 08/16/22 09:39 BP 137/93 H 08/16/22 09:39 Pulse Ox 95 08/16/22 09:39 O2 Del Method 08/16/22 09:39 BMI result Body Mass Index 24.3 <Jamila Gill MD - Last Filed: 08/16/22 10:47> Appearance: Alert. Oriented X3. No acute distress. Head: Normal external exam. Normocephalic. Atraumatic. No Chapa signs noted. No raccoon eyes noted Eyes: PERRLA. EOMI. Conjunctiva and sclera normal. Eyelids normal. ENT: EAC normal. TM's Normal. Pharynx normal. Uvula midline. Moist mucous membranes. No trismus noted. No drooling noted. No muffled voice noted. Neck: Normal inspection. Neck supple. FROM. No adenopathy. Thyroid Normal. No meningeal signs. No neck mass noted. CVS: Normal heart rate and rhythm. Heart sound normal. No murmurs noted. Pulses normal throughout. Respiratory: No respiratory distress. Painless inspiration. Breath sounds normal. No wheezes/rales/rhonchi noted. Chest nontender. No accessory muscle usage noted or decreased air movement noted. Abdomen: Soft and mild tenderness to palpation to the left upper quadrant and diffusely. Bowel sounds normal in all 4 quadrants. No distention noted. No organomegaly noted. No visible injury noted. Back: No CVA tenderness. Full range of motion noted. Skin: Skin warm and dry. Normal skin color. Normal skin turgor. No rashes/lesions/lacerations noted. Extremities: No lower extremity edema. Extremities exhibit normal range of mo tion. Extremities nontender. Neuro: Oriented X 3. No motor deficit. No sensory deficit. Reflexes normal. CN's II-XII intact bilaterally? Psych: Appearance grossly normal, well-kept, mental status normal, speech and movement normal, speech clear. Is cooperative. <DOC Addison - Last Filed: 08/15/22 20:48> Course Course Course Narrative: 14:45pm - 51yoM c PMHx of intellectual disability, HTN, DM Type II not on any DM medications x years, hypothyroidism, mood disorder, anxiety, depression, PTSD, cycling bipolar disorder which increases in the spring/ summer and decreases in juan/winter presenting to the ED via EMS after he was sent from the skilled nursing for increased aggression toward the staff and chasing the staff for the past 2 days. when I discussed this with the patient he reports that someone in the skilled nursing is trying to take my house . I am unsure what he means by this. Otherwise he is endorsing a sore throat, body aches that are generalized throughout the entire body and abdominal pain. POC at 404. Plan: therefore at this time will obtain labs, UA, chest x-ray, EKG, drugs of abuse screen, COVID swab. Provide a L of IV fluids with 500 mg of metformin re- evaluate. <DOC Addison - Last Filed: 08/15/22 20:48> Reevaluation(s) Reevaluation #1: - labs reviewed patient with mild baseline anemia which is similar compared to prior - white blood cell count 4000 which is similar when compared to prior. Repeat POC after 1 L of IV fluids and 500 mg of metformin 292. Alkaline phosphate 168. Otherwise all other labs are within normal limits. Patient negative for all drugs. - Patient negative for COVID. - Patient negative for strep - CT scan abdomen pelvis with IV contrast revealed large colonic stool burden with a 6.1 cm desiccated stool ball within the rectum with mild rectal wall thickening. Therefore I consulted with Dr. Oviedo and he reported that the patient only needs this impaction and he will eventually need an outpatient colonoscopy. - Therefore patient now status post this impaction. Patient tolerated procedure well. No complications. Therefore he was placed back into the Pod IV was removed. And patient will be evaluated by crisis. Patient is placed in Physician observation at this time to be evaluated by crisis at this time he is alert oriented x3. Not in any acute distress. Normal steady gait. Has been cooperative the entire time he has been here in the ER. <DOC Addison - Last Filed: 08/15/22 20:48> Time: 19:16 <DOC Addison - Last Filed: 08/15/22 20:48> Reevaluation #2: Has been evaluated by N for aggression, felt that the patient need to come in as inpatient. Vital signs stable, no event overnight reported by the nurse, continue with physician observation. <Jamila Gill MD - Last Filed: 08/16/22 10:47> Time: 10:46 <Jamila Gill MD - Last Filed: 08/16/22 10:47> MDM - Psych Medical Records Attestation: I reviewed the patient's medical records. <DOC Addison - Last Filed: 08/15/22 20:48> Lab Data Attestation: I reviewed the patient's lab results. <DOC Addison - Last Filed: 08/15/22 20:48> Result diagrams: : 08/15/22 15:14 08/15/22 15:14 <DOC Addison - Last Filed: 08/15/22 20:48> Labs: Lab Results 08/15/22 08/15/22 08/15/22 Range/Units 14:33 14:33 15:14 WBC 4.5 L (4.8-10.8) X10*3/uL RBC 4.19 L (4.60-5.80) X10*6/uL Hgb 12.5 L (14.0-18.0) g/dl Hct 36.0 L (42.0-52.0) % MCV 85.9 (80.0-98.0) fL MCH 29.8 (27.0-33.0) pg MCHC 34.7 (31.0-36.0) g/dl RDW 12.7 (11.0-16.0) % Plt Count 166 D (160-400) X10*3/uL MPV 10.2 (9.4-12.4) fL Immature Gran % (Auto) 0.4 (0.0-0.4) % Neut % (Auto) 51.6 (45-73) % Lymph % (Auto) 38.3 (20-40) % [place] % (Auto) 8.0 (2-11) % Eos % (Auto) 1.3 (0-4) % Baso % (Auto) 0.4 (0-2) % Lymph # (Auto) 1.7 (1.2-4.9) X10*3/uL [place] # (Auto) 0.4 (0.1-1.2) X10*3/uL Eos # (Auto) 0.1 (0.0-0.4) X10*3/uL Baso # (Auto) 0.0 (0.0-0.2) X10*3/uL Abs Immat Gran (auto) 0.02 (0.00-0.03) X10*3/uL Absolute Neuts (auto) 2.3 (2.0-8.3) x10*3/uL Absolute Nucleated RBC 0.000 (0.0-0.012) X10*3/uL Nucleated RBC % (auto) 0.0 (0.0-0.2) /100WBC PT (10.0-13.1) SEC INR (0.9-1.1) Sodium (135-145) mmol/L Potassium (3.3-5.1) mmol/L Chloride (96-108) mmol/L Carbon Dioxide (22-29) mmol/L Anion Gap (12-20) BUN (9-16) mg/dL Creatinine (0.5-1.4) mg/dL Estim Creat Clear Calc Estimated GFR POC Glucose 404 H* (60-115) mg/dL Random Glucose (60-115) mg/dL Calcium (8.4-10.2) mg/dL Magnesium (1.6-2.6) mg/dL Total Bilirubin (0.0-1.0) mg/dL AST (5-37) U/L ALT (0-40) U/L Alkaline Phosphatase (39-117) U/L Lactate Dehydrogenase (118-273) U/L Troponin I High Sens (<3.5-35.0) ng/L Total Protein (6.5-8.0) g/dL Albumin (3.5-5.0) g/dL Amylase (28-100) U/L Lipase (8-78) U/L TSH (0.32-4.0) uIU/mL Urine Color Urine Appearance Urine pH (5.0-9.0) Ur Specific [place] (1.005-1.025) Urine Protein (Neg-Trace) mg/dL Urine Glucose (UA) (Negative) mg/dL Urine Ketones (Negative) mg/dL Urine Blood (Negative) Urine Nitrite (Negative) Ur Leukocyte Esterase (Negative) Urine RBC (0-2) /HPF Urine WBC (0-5) /HPF Ur Squamous Epith Cells (0-2) /HPF Urine Bacteria (None Seen) Hyaline Casts (0-2) /LPF Urine Yeast Urine Opiates Screen (Not Detect) Urine Fentanyl Screen (Not Detect) Ur Barbiturates Screen (Not Detect) Ur Phencyclidine Scrn (Not Detect) Ur Amphetamines Screen (Not Detect) U Benzodiazepines Scrn (Not Detect) Urine Cocaine Screen (Not Detect) U Marijuana (THC) Screen (Not Detect) Acetone, Qual (Negative) COVID-19 ([facility]) Negative (Negative) COVID-19 Clin Com See Note S. pyogenes GrpA DUSTIN (Negative) 08/15/22 08/15/22 08/15/22 Range/Units 15:14 15:14 15:14 WBC (4.8-10.8) X10*3/uL RBC (4.60-5.80) X10*6/uL Hgb (14.0-18.0) g/dl Hct (42.0-52.0) % MCV (80.0-98.0) fL MCH (27.0-33.0) pg MCHC (31.0-36.0) g/dl RDW (11.0-16.0) % Plt Count (160-400) X10*3/uL MPV (9.4-12.4) fL Immature Gran % (Auto) (0.0-0.4) % Neut % (Auto) (45-73) % Lymph % (Auto) (20-40) % [place] % (Auto) (2-11) % Eos % (Auto) (0-4) % Baso % (Auto) (0-2) % Lymph # (Auto) (1.2-4.9) X10*3/uL [place] # (Auto) (0.1-1.2) X10*3/uL Eos # (Auto) (0.0-0.4) X10*3/uL Baso # (Auto) (0.0-0.2) X10*3/uL Abs Immat Gran (auto) (0.00-0.03) X10*3/uL Absolute Neuts (auto) (2.0-8.3) x10*3/uL Absolute Nucleated RBC (0.0-0.012) X10*3/uL Nucleated RBC % (auto) (0.0-0.2) /100WBC PT 10.9 (10.0-13.1) SEC INR 1.0 (0.9-1.1) Sodium 135 (135-145) mmol/L Potassium 3.9 (3.3-5.1) mmol/L Chloride 97 (96-108) mmol/L Carbon Dioxide 25 (22-29) mmol/L Anion Gap 17 (12-20) BUN 12 (9-16) mg/dL Creatinine 0.90 (0.5-1.4) mg/dL Estim Creat Clear Calc 92.8 Estimated GFR > 60 POC Glucose (60-115) mg/dL Random Glucose 384 H* (60-115) mg/dL Calcium 9.0 (8.4-10.2) mg/dL Magnesium 1.7 (1.6-2.6) mg/dL Total Bilirubin 0.3 (0.0-1.0) mg/dL AST 19 (5-37) U/L ALT 17 (0-40) U/L Alkaline Phosphatase 168 H D (39-117) U/L Lactate Dehydrogenase (118-273) U/L Troponin I High Sens < 3.5 (<3.5-35.0) ng/L Total Protein 7.0 (6.5-8.0) g/dL Albumin 4.2 (3.5-5.0) g/dL Amylase (28-100) U/L Lipase (8-78) U/L TSH 1.20 (0.32-4.0) uIU/mL Urine Color Urine Appearance Urine pH (5.0-9.0) Ur Specific [place] (1.005-1.025) Urine Protein (Neg-Trace) mg/dL Urine Glucose (UA) (Negative) mg/dL Urine Ketones (Negative) mg/dL Urine Blood (Negative) Urine Nitrite (Negative) Ur Leukocyte Esterase (Negative) Urine RBC (0-2) /HPF Urine WBC (0-5) /HPF Ur Squamous Epith Cells (0-2) /HPF Urine Bacteria (None Seen) Hyaline Casts (0-2) /LPF Urine Yeast Urine Opiates Screen (Not Detect) Urine Fentanyl Screen (Not Detect) Ur Barbiturates Screen (Not Detect) Ur Phencyclidine Scrn (Not Detect) Ur Amphetamines Screen (Not Detect) U Benzodiazepines Scrn (Not Detect) Urine Cocaine Screen (Not Detect) U Marijuana (THC) Screen (Not Detect) Acetone, Qual Negative (Negative) COVID-19 ([facility]) (Negative) COVID-19 Clin Com S. pyogenes GrpA DUSTIN (Negative) 08/15/22 08/15/22 08/15/22 Range/Units 15:14 16:52 18:24 WBC (4.8-10.8) X10*3/uL RBC (4.60-5.80) X10*6/uL Hgb (14.0-18.0) g/dl Hct (42.0-52.0) % MCV (80.0-98.0) fL MCH (27.0-33.0) pg MCHC (31.0-36.0) g/dl RDW (11.0-16.0) % Plt Count (160-400) X10*3/uL MPV (9.4-12.4) fL Immature Gran % (Auto) (0.0-0.4) % Neut % (Auto) (45-73) % Lymph % (Auto) (20-40) % [place] % (Auto) (2-11) % Eos % (Auto) (0-4) % Baso % (Auto) (0-2) % Lymph # (Auto) (1.2-4.9) X10*3/uL [place] # (Auto) (0.1-1.2) X10*3/uL Eos # (Auto) (0.0-0.4) X10*3/uL Baso # (Auto) (0.0-0.2) X10*3/uL Abs Immat Gran (auto) (0.00-0.03) X10*3/uL Absolute Neuts (auto) (2.0-8.3) x10*3/uL Absolute Nucleated RBC (0.0-0.012) X10*3/uL Nucleated RBC % (auto) (0.0-0.2) /100WBC PT (10.0-13.1) SEC INR (0.9-1.1) Sodium (135-145) mmol/L Potassium (3.3-5.1) mmol/L Chloride (96-108) mmol/L Carbon Dioxide (22-29) mmol/L Anion Gap (12-20) BUN (9-16) mg/dL Creatinine (0.5-1.4) mg/dL Estim Creat Clear Calc Estimated GFR POC Glucose (60-115) mg/dL Random Glucose (60-115) mg/dL Calcium (8.4-10.2) mg/dL Magnesium (1.6-2.6) mg/dL Total Bilirubin (0.0-1.0) mg/dL AST (5-37) U/L ALT (0-40) U/L Alkaline Phosphatase (39-117) U/L Lactate Dehydrogenase 173 (118-273) U/L Troponin I High Sens (<3.5-35.0) ng/L Total Protein (6.5-8.0) g/dL Albumin (3.5-5.0) g/dL Amylase 39 (28-100) U/L Lipase 35 (8-78) U/L TSH (0.32-4.0) uIU/mL Urine Color Urine Appearance Urine pH (5.0-9.0) Ur Specific [place] (1.005-1.025) Urine Protein (Neg-Trace) mg/dL Urine Glucose (UA) (Negative) mg/dL Urine Ketones (Negative) mg/dL Urine Blood (Negative) Urine Nitrite (Negative) Ur Leukocyte Esterase (Negative) Urine RBC (0-2) /HPF Urine WBC (0-5) /HPF Ur Squamous Epith Cells (0-2) /HPF Urine Bacteria (None Seen) Hyaline Casts (0-2) /LPF Urine Yeast Urine Opiates Screen Not Detected (Not Detect) Urine Fentanyl Screen Not Detected (Not Detect) Ur Barbiturates Screen Not Detected (Not Detect) Ur Phencyclidine Scrn Not Detected (Not Detect) Ur Amphetamines Screen Not Detected (Not Detect) U Benzodiazepines Scrn Not Detected (Not Detect) Urine Cocaine Screen Not Detected (Not Detect) U Marijuana (THC) Screen Not Detected (Not Detect) Acetone, Qual (Negative) COVID-19 ([facility]) (Negative) COVID-19 Clin Com S. pyogenes GrpA DUSTIN Negative (Negative) 08/15/22 08/15/22 08/16/22 Range/Units 18:24 18:32 06:33 WBC (4.8-10.8) X10*3/uL RBC (4.60-5.80) X10*6/uL Hgb (14.0-18.0) g/dl Hct (42.0-52.0) % MCV (80.0-98.0) fL MCH (27.0-33.0) pg MCHC (31.0-36.0) g/dl RDW (11.0-16.0) % Plt Count (160-400) X10*3/uL MPV (9.4-12.4) fL Immature Gran % (Auto) (0.0-0.4) % Neut % (Auto) (45-73) % Lymph % (Auto) (20-40) % [place] % (Auto) (2-11) % Eos % (Auto) (0-4) % Baso % (Auto) (0-2) % Lymph # (Auto) (1.2-4.9) X10*3/uL [place] # (Auto) (0.1-1.2) X10*3/uL Eos # (Auto) (0.0-0.4) X10*3/uL Baso # (Auto) (0.0-0.2) X10*3/uL Abs Immat Gran (auto) (0.00-0.03) X10*3/uL Absolute Neuts (auto) (2.0-8.3) x10*3/uL Absolute Nucleated RBC (0.0-0.012) X10*3/uL Nucleated RBC % (auto) (0.0-0.2) /100WBC PT (10.0-13.1) SEC INR (0.9-1.1) Sodium (135-145) mmol/L Potassium (3.3-5.1) mmol/L Chloride (96-108) mmol/L Carbon Dioxide (22-29) mmol/L Anion Gap (12-20) BUN (9-16) mg/dL Creatinine (0.5-1.4) mg/dL Estim Creat Clear Calc Estimated GFR POC Glucose 292 H 254 H (60-115) mg/dL Random Glucose (60-115) mg/dL Calcium (8.4-10.2) mg/dL Magnesium (1.6-2.6) mg/dL Total Bilirubin (0.0-1.0) mg/dL AST (5-37) U/L ALT (0-40) U/L Alkaline Phosphatase (39-117) U/L Lactate Dehydrogenase (118-273) U/L Troponin I High Sens (<3.5-35.0) ng/L Total Protein (6.5-8.0) g/dL Albumin (3.5-5.0) g/dL Amylase (28-100) U/L Lipase (8-78) U/L TSH (0.32-4.0) uIU/mL Urine Color Yellow Urine Appearance Clear Urine pH 6.0 (5.0-9.0) Ur Specific [place] <= 1.005 (1.005-1.025) Urine Protein Negative (Neg-Trace) mg/dL Urine Glucose (UA) >=1000 H (Negative) mg/dL Urine Ketones Negative (Negative) mg/dL Urine Blood Negative (Negative) Urine Nitrite Negative (Negative) Ur Leukocyte Esterase Negative (Negative) Urine RBC 0-2 (0-2) /HPF Urine WBC 0-5 (0-5) /HPF Ur Squamous Epith Cells 0-2 (0-2) /HPF Urine Bacteria None Seen (None Seen) Hyaline Casts 0-2 (0-2) /LPF Urine Yeast Present Urine Opiates Screen (Not Detect) Urine Fentanyl Screen (Not Detect) Ur Barbiturates Screen (Not Detect) Ur Phencyclidine Scrn (Not Detect) Ur Amphetamines Screen (Not Detect) U Benzodiazepines Scrn (Not Detect) Urine Cocaine Screen (Not Detect) U Marijuana (THC) Screen (Not Detect) Acetone, Qual (Negative) COVID-19 ([facility]) (Negative) COVID-19 Clin Com S. pyogenes GrpA DUSTIN (Negative) <DOC Addison - Last Filed: 08/15/22 20:48> Lab Results 08/15/22 08/15/22 08/15/22 Range/Units 14:33 14:33 15:14 WBC 4.5 L (4.8-10.8) X10*3/uL RBC 4.19 L (4.60-5.80) X10*6/uL Hgb 12.5 L (14.0-18.0) g/dl Hct 36.0 L (42.0-52.0) % MCV 85.9 (80.0-98.0) fL MCH 29.8 (27.0-33.0) pg MCHC 34.7 (31.0-36.0) g/dl RDW 12.7 (11.0-16.0) % Plt Count 166 D (160-400) X10*3/uL MPV 10.2 (9.4-12.4) fL Immature Gran % (Auto) 0.4 (0.0-0.4) % Neut % (Auto) 51.6 (45-73) % Lymph % (Auto) 38.3 (20-40) % [place] % (Auto) 8.0 (2-11) % Eos % (Auto) 1.3 (0-4) % Baso % (Auto) 0.4 (0-2) % Lymph # (Auto) 1.7 (1.2-4.9) X10*3/uL [place] # (Auto) 0.4 (0.1-1.2) X10*3/uL Eos # (Auto) 0.1 (0.0-0.4) X10*3/uL Baso # (Auto) 0.0 (0.0-0.2) X10*3/uL Abs Immat Gran (auto) 0.02 (0.00-0.03) X10*3/uL Absolute Neuts (auto) 2.3 (2.0-8.3) x10*3/uL Absolute Nucleated RBC 0.000 (0.0-0.012) X10*3/uL Nucleated RBC % (auto) 0.0 (0.0-0.2) /100WBC PT (10.0-13.1) SEC INR (0.9-1.1) Sodium (135-145) mmol/L Potassium (3.3-5.1) mmol/L Chloride (96-108) mmol/L Carbon Dioxide (22-29) mmol/L Anion Gap (12-20) BUN (9-16) mg/dL Creatinine (0.5-1.4) mg/dL Estim Creat Clear Calc Estimated GFR POC Glucose 404 H* (60-115) mg/dL Random Glucose (60-115) mg/dL Calcium (8.4-10.2) mg/dL Magnesium (1.6-2.6) mg/dL Total Bilirubin (0.0-1.0) mg/dL AST (5-37) U/L ALT (0-40) U/L Alkaline Phosphatase (39-117) U/L Lactate Dehydrogenase (118-273) U/L Troponin I High Sens (<3.5-35.0) ng/L Total Protein (6.5-8.0) g/dL Albumin (3.5-5.0) g/dL Amylase (28-100) U/L Lipase (8-78) U/L TSH (0.32-4.0) uIU/mL Urine Color Urine Appearance Urine pH (5.0-9.0) Ur Specific [place] (1.005-1.025) Urine Protein (Neg-Trace) mg/dL Urine Glucose (UA) (Negative) mg/dL Urine Ketones (Negative) mg/dL Urine Blood (Negative) Urine Nitrite (Negative) Ur Leukocyte Esterase (Negative) Urine RBC (0-2) /HPF Urine WBC (0-5) /HPF Ur Squamous Epith Cells (0-2) /HPF Urine Bacteria (None Seen) Hyaline Casts (0-2) /LPF Urine Yeast Urine Opiates Screen (Not Detect) Urine Fentanyl Screen (Not Detect) Ur Barbiturates Screen (Not Detect) Ur Phencyclidine Scrn (Not Detect) Ur Amphetamines Screen (Not Detect) U Benzodiazepines Scrn (Not Detect) Urine Cocaine Screen (Not Detect) U Marijuana (THC) Screen (Not Detect) Acetone, Qual (Negative) COVID-19 ([facility]) Negative (Negative) COVID-19 Clin Com See Note S. pyogenes GrpA DUSTIN (Negative) 08/15/22 08/15/22 08/15/22 Range/Units 15:14 15:14 15:14 WBC (4.8-10.8) X10*3/uL RBC (4.60-5.80) X10*6/uL Hgb (14.0-18.0) g/dl Hct (42.0-52.0) % MCV (80.0-98.0) fL MCH (27.0-33.0) pg MCHC (31.0-36.0) g/dl RDW (11.0-16.0) % Plt Count (160-400) X10*3/uL MPV (9.4-12.4) fL Immature Gran % (Auto) (0.0-0.4) % Neut % (Auto) (45-73) % Lymph % (Auto) (20-40) % [place] % (Auto) (2-11) % Eos % (Auto) (0-4) % Baso % (Auto) (0-2) % Lymph # (Auto) (1.2-4.9) X10*3/uL [place] # (Auto) (0.1-1.2) X10*3/uL Eos # (Auto) (0.0-0.4) X10*3/uL Baso # (Auto) (0.0-0.2) X10*3/uL Abs Immat Gran (auto) (0.00-0.03) X10*3/uL Absolute Neuts (auto) (2.0-8.3) x10*3/uL Absolute Nucleated RBC (0.0-0.012) X10*3/uL Nucleated RBC % (auto) (0.0-0.2) /100WBC PT 10.9 (10.0-13.1) SEC INR 1.0 (0.9-1.1) Sodium 135 (135-145) mmol/L Potassium 3.9 (3.3-5.1) mmol/L Chloride 97 (96-108) mmol/L Carbon Dioxide 25 (22-29) mmol/L Anion Gap 17 (12-20) BUN 12 (9-16) mg/dL Creatinine 0.90 (0.5-1.4) mg/dL Estim Creat Clear Calc 92.8 Estimated GFR > 60 POC Glucose (60-115) mg/dL Random Glucose 384 H* (60-115) mg/dL Calcium 9.0 (8.4-10.2) mg/dL Magnesium 1.7 (1.6-2.6) mg/dL Total Bilirubin 0.3 (0.0-1.0) mg/dL AST 19 (5-37) U/L ALT 17 (0-40) U/L Alkaline Phosphatase 168 H D (39-117) U/L Lactate Dehydrogenase (118-273) U/L Troponin I High Sens < 3.5 (<3.5-35.0) ng/L Total Protein 7.0 (6.5-8.0) g/dL Albumin 4.2 (3.5-5.0) g/dL Amylase (28-100) U/L Lipase (8-78) U/L TSH 1.20 (0.32-4.0) uIU/mL Urine Color Urine Appearance Urine pH (5.0-9.0) Ur Specific [place] (1.005-1.025) Urine Protein (Neg-Trace) mg/dL Urine Glucose (UA) (Negative) mg/dL Urine Ketones (Negative) mg/dL Urine Blood (Negative) Urine Nitrite (Negative) Ur Leukocyte Esterase (Negative) Urine RBC (0-2) /HPF Urine WBC (0-5) /HPF Ur Squamous Epith Cells (0-2) /HPF Urine Bacteria (None Seen) Hyaline Casts (0-2) /LPF Urine Yeast Urine Opiates Screen (Not Detect) Urine Fentanyl Screen (Not Detect) Ur Barbiturates Screen (Not Detect) Ur Phencyclidine Scrn (Not Detect) Ur Amphetamines Screen (Not Detect) U Benzodiazepines Scrn (Not Detect) Urine Cocaine Screen (Not Detect) U Marijuana (THC) Screen (Not Detect) Acetone, Qual Negative (Negative) COVID-19 (EDNA) (Negative) COVID-19 Clin Com S. pyogenes GrpA DUSTIN (Negative) 08/15/22 08/15/22 08/15/22 Range/Units 15:14 16:52 18:24 WBC (4.8-10.8) X10*3/uL RBC (4.60-5.80) X10*6/uL Hgb (14.0-18.0) g/dl Hct (42.0-52.0) % MCV (80.0-98.0) fL MCH (27.0-33.0) pg MCHC (31.0-36.0) g/dl RDW (11.0-16.0) % Plt Count (160-400) X10*3/uL MPV (9.4-12.4) fL Immature Gran % (Auto) (0.0-0.4) % Neut % (Auto) (45-73) % Lymph % (Auto) (20-40) % [place] % (Auto) (2-11) % Eos % (Auto) (0-4) % Baso % (Auto) (0-2) % Lymph # (Auto) (1.2-4.9) X10*3/uL [place] # (Auto) (0.1-1.2) X10*3/uL Eos # (Auto) (0.0-0.4) X10*3/uL Baso # (Auto) (0.0-0.2) X10*3/uL Abs Immat Gran (auto) (0.00-0.03) X10*3/uL Absolute Neuts (auto) (2.0-8.3) x10*3/uL Absolute Nucleated RBC (0.0-0.012) X10*3/uL Nucleated RBC % (auto) (0.0-0.2) /100WBC PT (10.0-13.1) SEC INR (0.9-1.1) Sodium (135-145) mmol/L Potassium (3.3-5.1) mmol/L Chloride (96-108) mmol/L Carbon Dioxide (22-29) mmol/L Anion Gap (12-20) BUN (9-16) mg/dL Creatinine (0.5-1.4) mg/dL Estim Creat Clear Calc Estimated GFR POC Glucose (60-115) mg/dL Random Glucose (60-115) mg/dL Calcium (8.4-10.2) mg/dL Magnesium (1.6-2.6) mg/dL Total Bilirubin (0.0-1.0) mg/dL AST (5-37) U/L ALT (0-40) U/L Alkaline Phosphatase (39-117) U/L Lactate Dehydrogenase 173 (118-273) U/L Troponin I High Sens (<3.5-35.0) ng/L Total Protein (6.5-8.0) g/dL Albumin (3.5-5.0) g/dL Amylase 39 (28-100) U/L Lipase 35 (8-78) U/L TSH (0.32-4.0) uIU/mL Urine Color Urine Appearance Urine pH (5.0-9.0) Ur Specific [place] (1.005-1.025) Urine Protein (Neg-Trace) mg/dL Urine Glucose (UA) (Negative) mg/dL Urine Ketones (Negative) mg/dL Urine Blood (Negative) Urine Nitrite (Negative) Ur Leukocyte Esterase (Negative) Urine RBC (0-2) /HPF Urine WBC (0-5) /HPF Ur Squamous Epith Cells (0-2) /HPF Urine Bacteria (None Seen) Hyaline Casts (0-2) /LPF Urine Yeast Urine Opiates Screen Not Detected (Not Detect) Urine Fentanyl Screen Not Detected (Not Detect) Ur Barbiturates Screen Not Detected (Not Detect) Ur Phencyclidine Scrn Not Detected (Not Detect) Ur Amphetamines Screen Not Detected (Not Detect) U Benzodiazepines Scrn Not Detected (Not Detect) Urine Cocaine Screen Not Detected (Not Detect) U Marijuana (THC) Screen Not Detected (Not Detect) Acetone, Qual (Negative) COVID-19 (EDNA) (Negative) COVID-19 Clin Com S. pyogenes GrpA DUSTIN Negative (Negative) 08/15/22 08/15/22 08/16/22 Range/Units 18:24 18:32 06:33 WBC (4.8-10.8) X10*3/uL RBC (4.60-5.80) X10*6/uL Hgb (14.0-18.0) g/dl Hct (42.0-52.0) % MCV (80.0-98.0) fL MCH (27.0-33.0) pg MCHC (31.0-36.0) g/dl RDW (11.0-16.0) % Plt Count (160-400) X10*3/uL MPV (9.4-12.4) fL Immature Gran % (Auto) (0.0-0.4) % Neut % (Auto) (45-73) % Lymph % (Auto) (20-40) % [place] % (Auto) (2-11) % Eos % (Auto) (0-4) % Baso % (Auto) (0-2) % Lymph # (Auto) (1.2-4.9) X10*3/uL [place] # (Auto) (0.1-1.2) X10*3/uL Eos # (Auto) (0.0-0.4) X10*3/uL Baso # (Auto) (0.0-0.2) X10*3/uL Abs Immat Gran (auto) (0.00-0.03) X10*3/uL Absolute Neuts (auto) (2.0-8.3) x10*3/uL Absolute Nucleated RBC (0.0-0.012) X10*3/uL Nucleated RBC % (auto) (0.0-0.2) /100WBC PT (10.0-13.1) SEC INR (0.9-1.1) Sodium (135-145) mmol/L Potassium (3.3-5.1) mmol/L Chloride (96-108) mmol/L Carbon Dioxide (22-29) mmol/L Anion Gap (12-20) BUN (9-16) mg/dL Creatinine (0.5-1.4) mg/dL Estim Creat Clear Calc Estimated GFR POC Glucose 292 H 254 H (60-115) mg/dL Random Glucose (60-115) mg/dL Calcium (8.4-10.2) mg/dL Magnesium (1.6-2.6) mg/dL Total Bilirubin (0.0-1.0) mg/dL AST (5-37) U/L ALT (0-40) U/L Alkaline Phosphatase (39-117) U/L Lactate Dehydrogenase (118-273) U/L Troponin I High Sens (<3.5-35.0) ng/L Total Protein (6.5-8.0) g/dL Albumin (3.5-5.0) g/dL Amylase (28-100) U/L Lipase (8-78) U/L TSH (0.32-4.0) uIU/mL Urine Color Yellow Urine Appearance Clear Urine pH 6.0 (5.0-9.0) Ur Specific [place] <= 1.005 (1.005-1.025) Urine Protein Negative (Neg-Trace) mg/dL Urine Glucose (UA) >=1000 H (Negative) mg/dL Urine Ketones Negative (Negative) mg/dL Urine Blood Negative (Negative) Urine Nitrite Negative (Negative) Ur Leukocyte Esterase Negative (Negative) Urine RBC 0-2 (0-2) /HPF Urine WBC 0-5 (0-5) /HPF Ur Squamous Epith Cells 0-2 (0-2) /HPF Urine Bacteria None Seen (None Seen) Hyaline Casts 0-2 (0-2) /LPF Urine Yeast Present Urine Opiates Screen (Not Detect) Urine Fentanyl Screen (Not Detect) Ur Barbiturates Screen (Not Detect) Ur Phencyclidine Scrn (Not Detect) Ur Amphetamines Screen (Not Detect) U Benzodiazepines Scrn (Not Detect) Urine Cocaine Screen (Not Detect) U Marijuana (THC) Screen (Not Detect) Acetone, Qual (Negative) COVID-19 (EDNA) (Negative) COVID-19 Clin Com S. pyogenes GrpA DUSTIN (Negative) <Jamila Gill MD - Last Filed: 08/16/22 10:47> Imaging Data CT scan abdomen pelvis with IV contrast: Attestation: I personally reviewed and interpreted this imaging study as follows: <DOC Addison - Last Filed: 08/15/22 20:48> Radiologist's impression: FINDINGS: Motion degraded exam limiting evaluation, particularly involving the pancreas, spleen, liver, and adrenal glands. LUNG BASES: Unremarkable.? ABDOMINAL AND PELVIC WALL:? Unremarkable.? LIVER AND BILIARY TREE: Hypoattenuating hepatic parenchyma compatible with hepatic steatosis.? GALLBLADDER: Status post cholecystectomy.? PANCREAS: Unremarkable.? SPLEEN: Unremarkable.? ADRENAL GLANDS: Unremarkable.? KIDNEYS AND URETERS: Unremarkable.? GASTROINTESTINAL TRACT: Desiccated stool ball within the rectum measuring approximately 6.1 cm with mild rectal wall thickening. Overall large colonic stool burden. Colonic diverticulosis without evidence of diverticulitis.? Normal appendix.? VASCULAR: Unremarkable. LYMPH NODES/PERITONEUM: No lymphadenopathy. FREE FLUID: None. BLADDER: Unremarkable.? PELVIC VISCERA: Unremarkable. OSSEOUS STRUCTURES: Unremarkable.? CT/CT abdomen pelvis w IV con IMPRESSION: ? Overall large colonic stool burden with a 6.1 cm desiccated stool ball within the rectum with mild rectal wall thickening, which could potentially reflect stercoral colitis if clinical symptoms are appropriate. ? Hepatic steatosis. ? Exam is motion degraded limiting evaluation, particularly of multiple solid organs. ? <DOC Addison - Last Filed: 08/15/22 20:48> ECG Data Attestation: I personally reviewed and interpreted this ECG as follows: <DOC Addison Last Filed: 08/15/22 20:48> ECG interpretation date: 08/15/22 <DOC Addison - Last Filed: 08/15/22 20:48> ECG interpretation time: 15:22 <DOC Addison - Last Filed: 08/15/22 20:48> Interpretation: normal sinus rhythm with ventricular rate of 89 with left axis deviation and left ventricular hypertrophy with QRS widening nonspecific T-wave abnormalities similar compared to prior EKG 05/04/2022 no acute ischemic changes noted today. <DOC Addison Last Filed: 08/15/22 20:48> Critical Care Time Critical Care Time Critical Care Time: Yes <DOC Addison Last Filed: 08/15/22 20:48> Total Critical Care Time: 60 <DOC Addison Last Filed: 08/15/22 20:48> Attestation: I personally attest to this time spent taking care of the patient <DOC Addison - Last Filed: 08/15/22 20:48> Discharge Plan Discharge Clinical Impression: Intellectual disability, Schizoaffective disorder, bipolar type, Mental and behavioral problem, Diabetes, Acute hyperglycemia, Fecal impaction <DOC Addison - Last Filed: 08/15/22 20:48> Patient Disposition: Still a Patient <DOC Addison - Last Filed: 08/15/22 20:48> Prescriptions: No Action docusate sodium [Docu] 50 mg/5 mL liquid 10 ml PO DAILY donepezil 5 mg tablet 1 tab PO DAILY haloperidol 5 mg tablet 1 tab PO BID levothyroxine 88 mcg tablet 1 tab PO DAILY haloperidol 10 mg tablet 1 tab PO BID benztropine 1 mg tablet 1 tab PO BID lorazepam 1 mg tablet 1 tab PO DAILY paroxetine HCl 40 mg tablet 1 tab PO DAILY carbamazepine 200 mg Tablet 400 mg PO BID Qty: 60 0RF acetaminophen [Tylenol] 325 mg Tablet 650 mg PO Q6H PRN (Reason: PAIN/FEVER) guaifenesin [Robitussin] 100 mg/5 mL Liquid 200 mg PO Q4H PRN (Reason: Cough) ibuprofen 200 mg Tablet 200 mg PO Q4H PRN (Reason: PAIN/FEVER) ammonium lactate 12 % cream 1 applic topical DAILY PRN (Reason: Dry Skin) lorazepam 1 mg tablet 1 tab PO Q6H PRN (Reason: Anxiety) olanzapine 5 mg tablet 5 mg PO BID Qty: 14 0RF <DOC Addison - Last Filed: 08/15/22 20:48>
[2022-08-15 15:40] LABS: Acetone, serum QL Negative (Negative)
[2022-08-15 15:41] LABS: Amylase 39 U/L (28-100); Lactate Dehydrogenase 173 U/L (118-273); Lipase 35 U/L (8-78)
[2022-08-15 15:45] LABS: Alanine Aminotransferase 17 U/L (0-40); Albumin Level 4.2 g/dL (3.5-5.0); Alkaline Phosphatase 168 U/L (39-117); Anion Gap 17 (12-20); Aspartate Amino Transferase 19 U/L (5-37); Bilirubin Total 0.3 mg/dL (0.0-1.0); Blood Urea Nitrogen 12 mg/dL (9-16); Carbon Dioxide 25 mmol/L (22-29); Chloride 97 mmol/L (96-108); Creatinine Clr Calc Pharmacy 92.8; Estimated Glomerular Filt Rate > 60; Glucose Random 384 mg/dL (60-115); Magnesium 1.7 mg/dL (1.6-2.6); Potassium 3.9 mmol/L (3.3-5.1); Sodium 135 mmol/L (135-145)
[2022-08-15 15:48] LABS: Troponin-I High Sensitivity < 3.5 ng/L (<3.5-35.0)
--- NOTE | 2022-08-15 16:46 | PC.NURSE ---
IV placed, 1:1 at bedside along w staff from [facility], pt to CT.
[2022-08-15] MEDS: iohexoL 350 MG/ML 100 ML INFUS..BTL IV (16:58)
[2022-08-15] MEDS: metFORMIN HCl 500 MG TABLET PO (17:02)
[2022-08-15] MEDS: 0.9 % Sodium Chloride 1,000 ML 999 ML IVCONT (17:02)
[2022-08-15 17:08] LABS: Strep A Nucleic Acid Negative (Negative)
[2022-08-15 18:36] LABS: Glucose, Whole Blood 292 mg/dL (60-115)
[2022-08-15 18:45] LABS: Amphetamine Screen Urine Not Detected (Not Detect); Barbiturates, Urine Not Detected (Not Detect); Benzodiazepines Screen Urine Not Detected (Not Detect); Cannabinoid Screen Urine Not Detected (Not Detect); Cocaine Screen Urine Not Detected (Not Detect); Fentanyl, urine Not Detected (Not Detect); Opiate Screen Urine Not Detected (Not Detect); Phencyclidine Screen Urine Not Detected (Not Detect)
[2022-08-15] MEDS: Mineral OiL enema 133 ML ENEMA PR (19:45)
[2022-08-15] MEDS: Docusate Sodium 100 MG/10 ML LIQUID PO (20:21)
[2022-08-15] MEDS: Benztropine Mesylate 1 MG TABLET PO (20:21)
[2022-08-15] MEDS: OLANZapine 5 MG TABLET PO (20:21)
[2022-08-15] MEDS: HaloperidoL 5 MG TABLET PO (20:21)
[2022-08-15] MEDS: Donepezil HCl 5 MG TABLET PO (20:21)
[2022-08-15] MEDS: LORazepam 1 MG TABLET PO (20:21)
[2022-08-15] MEDS: HaloperidoL 5 MG TABLET 10 MG PO (20:27)
[2022-08-15] MEDS: carBAMazepine 200 MG TABLET 400 MG PO (20:39)
[2022-08-15] MEDS: PARoxetine HCL 40 MG TABLET PO (20:39)
[2022-08-15 21:32] LABS: Appearance Urine Clear; Color Urine Yellow; Glucose Urine UA >=1000 mg/dL (Negative); Leukocyte Esterase Urine Negative (Negative); Nitrite Urine Negative (Negative); Specific Gravity - Urine <= 1.005 (1.005-1.025); UMIC TRIGGER UA YES; Urine Blood Negative (Negative); Urine Ketones Negative (Negative); Urine Protein Negative (Neg-Trace)
[2022-08-15 21:49] LABS: Bacteria Urine None Seen (None Seen); Hyaline Casts Urine 0-2 /LPF (0-2); RBC Urine 0-2 /HPF (0-2); Squamous Epithelial Cell Urine 0-2 /HPF (0-2); WBC Urine 0-5 /HPF (0-5)
[2022-08-15 21:53] VITALS: BP 120/77; PULSE 100; RESP 20; TEMP 36.6; O2SAT 98
[2022-08-16 06:36] VITALS: BP 103/70; PULSE 76; RESP 16; TEMP 36.4; O2SAT 99
[2022-08-16 06:39] LABS: Glucose, Whole Blood 254 mg/dL (60-115)
--- NOTE | 2022-08-16 06:48 | PC.NURSE ---
Patient slept through the night, no distress observed/reported, behavior appropriate and non concerning, medication compliant, POC 254 at 0633, awaiting [facility]N evaluation in the morning, VSS, will continue to monitor.
--- NOTE | 2022-08-16 08:12 | PC.NURSE ---
pt sleeping in bed rr even/unlabored. per n, clinician will be in for evaluation this am
[2022-08-16 09:39] VITALS: BP 137/93; PULSE 90; RESP 20; TEMP 36.3; O2SAT 95
[2022-08-16] MEDS: Docusate Sodium 100 MG/10 ML LIQUID PO (09:53)
[2022-08-16] MEDS: OLANZapine 5 MG TABLET PO ×2 (09:53→21:22)
[2022-08-16] MEDS: HaloperidoL 5 MG TABLET 10 MG PO ×2 (09:53→21:21)
[2022-08-16] MEDS: Benztropine Mesylate 1 MG TABLET PO ×2 (09:53→21:21)
[2022-08-16] MEDS: Levothyroxine Sodium 88 MCG TABLET PO (09:53)
[2022-08-16] MEDS: Donepezil HCl 5 MG TABLET PO (09:53)
[2022-08-16] MEDS: HaloperidoL 5 MG TABLET PO ×2 (09:54→21:22)
[2022-08-16] MEDS: carBAMazepine 200 MG TABLET 400 MG PO ×2 (10:20→21:48)
[2022-08-16] MEDS: PARoxetine HCL 40 MG TABLET PO (10:20)
[2022-08-16 17:47] VITALS: BP 139/85; PULSE 84; RESP 16; TEMP 36.5; O2SAT 96
[2022-08-16 18:22] LABS: Glucose, Whole Blood 274 mg/dL (60-115)
[2022-08-17 06:00] LABS: Glucose, Whole Blood 290 mg/dL (60-115)
[2022-08-17 06:01] VITALS: BP 122/79; PULSE 78; RESP 16; TEMP 36.2; O2SAT 98
--- NOTE | 2022-08-17 06:04 | PC.NURSE ---
Patient slept through the night, no distress observed/reported, behavior appropriate and non concerning, medication compliant, POC 290 at 0556, disposition per N is section 12 inpatient DDS bed search, VSS, will continue to monitor.
[2022-08-17] MEDS: Benztropine Mesylate 1 MG TABLET PO ×2 (07:53→20:18)
[2022-08-17] MEDS: Donepezil HCl 5 MG TABLET PO (07:53)
[2022-08-17] MEDS: Levothyroxine Sodium 88 MCG TABLET PO (07:53)
[2022-08-17] MEDS: OLANZapine 5 MG TABLET PO ×2 (07:53→20:17)
[2022-08-17] MEDS: Docusate Sodium 100 MG/10 ML LIQUID PO (07:53)
[2022-08-17] MEDS: HaloperidoL 5 MG TABLET PO ×2 (07:53→20:44)
[2022-08-17] MEDS: HaloperidoL 5 MG TABLET 10 MG PO ×2 (07:58→20:18)
[2022-08-17] MEDS: LORazepam 1 MG TABLET PO (08:17)
[2022-08-17] MEDS: carBAMazepine 200 MG TABLET 400 MG PO ×2 (09:21→20:19)
[2022-08-17] MEDS: PARoxetine HCL 40 MG TABLET PO (09:21)
--- NOTE | 2022-08-17 12:32 | PC.NURSE ---
Patient is alert and coorperative. Took morning meds without difficulty, spoke with BHN. Plan is to await DDS bed placement. No c/o pain or discomfort at this time.
[2022-08-17 20:51] LABS: Glucose, Whole Blood 304 mg/dL (60-115)
--- NOTE | 2022-08-18 05:24 | PC.NURSE ---
Patient sleeping comfortably, no distress noted. Will continue to monitor.
--- NOTE | 2022-08-18 06:12 | PC.NURSE ---
Patient sleeping comfortably, no distress noted. Will continue to monitor.
[2022-08-18 06:49] VITALS: BP 115/78; PULSE 78; RESP 16; TEMP 36.8; O2SAT 97
[2022-08-18 08:01] LABS: Glucose, Whole Blood 256 mg/dL (60-115)
[2022-08-18] MEDS: Donepezil HCl 5 MG TABLET PO (08:34)
[2022-08-18] MEDS: metFORMIN HCl 500 MG TABLET PO ×2 (08:34→21:24)
[2022-08-18] MEDS: OLANZapine 5 MG TABLET PO ×2 (08:36→21:24)
[2022-08-18] MEDS: HaloperidoL 5 MG TABLET 10 MG PO ×2 (08:36→21:25)
[2022-08-18] MEDS: Docusate Sodium 100 MG/10 ML LIQUID PO (08:36)
[2022-08-18] MEDS: HaloperidoL 5 MG TABLET PO ×2 (08:36→21:38)
[2022-08-18] MEDS: Levothyroxine Sodium 88 MCG TABLET PO (08:36)
[2022-08-18] MEDS: Benztropine Mesylate 1 MG TABLET PO ×2 (08:36→21:25)
[2022-08-18] MEDS: LORazepam 1 MG TABLET PO (08:36)
[2022-08-18 08:37] LABS: Estimated Average Glucose 303 mg/dL; Hemoglobin A1c % 12.2 %
[2022-08-18] MEDS: carBAMazepine 200 MG TABLET 400 MG PO ×2 (08:37→21:33)
[2022-08-18] MEDS: PARoxetine HCL 40 MG TABLET PO (08:37)
[2022-08-18] MEDS: Acetaminophen 325 MG TABLET 650 MG PO (08:40)
--- NOTE | 2022-08-18 11:40 | PC.NURSE ---
alert, nad, asked for apap for a HANNA, medicated as ordered, pleasant and cooperative, walking and socializing in the pod
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
[2022-08-18 12:57] LABS: Glucose, Whole Blood 310 mg/dL (60-115)
[2022-08-18] MEDS: Insulin Lispro 100 UNIT/ML 3 ML VIAL SUBCUT ×3 (15:19→22:09)
[2022-08-18 18:43] LABS: Glucose, Whole Blood 237 mg/dL (60-115)
[2022-08-18 19:11] LABS: Glucose, Whole Blood 234 mg/dL (60-115)
[2022-08-18 21:42] LABS: Glucose, Whole Blood 198 mg/dL (60-115)
[2022-08-18 23:14] VITALS: BP 139/85; PULSE 97; RESP 17; TEMP 36.7; O2SAT 99
--- NOTE | 2022-08-18 23:24 | PC.NURSE ---
Patient has been more visible in the unit with his peers, at times needs redirections, all PM meds given.Will continue to monitor.
--- NOTE | 2022-08-19 06:35 | PC.NURSE ---
Patient sleeping comfortably, without any distress.will continue to monitor.
[2022-08-19 06:51] LABS: Glucose, Whole Blood 202 mg/dL (60-115)
--- NOTE | 2022-08-19 07:38 | PC.NURSE ---
given breakfast tray - pt does not want to eat this early - requesting to wait - rn holding insulin without meal at this time.
--- NOTE | 2022-08-19 09:35 | PC.NURSE ---
pt laying supine on stretcher, states is mad at staff refusing tot liam am medications at time of medication pass. refusing to sit up. self repositioned, and placed blankets.
--- NOTE | 2022-08-19 10:29 | PC.NURSE ---
Irritability noted, pt states it is due to staff and told staff to leave his room. Refused breakfast and all am meds. Refused coverage for FBS of 202. Kept eyes closed when staff attempted to engage, responded by telling staff to leave.
[2022-08-19] MEDS: Acetaminophen 325 MG TABLET 650 MG PO (12:09)
--- NOTE | 2022-08-19 14:11 | PC.NURSE ---
Pt requested and received Tylenol 650 mg po at 1209 for c/o headache, unable to rate. Initially stated he would accept am meds he had previously refused, but then refused again. Refused poc at 1130. Ate 1/2 lunch rice and beans for lunch and then refused to eat further when given explanation as to what he was eating when he questioned food. Reports relief from headache when reassessed for med effectiveness.
[2022-08-19] MEDS: Insulin Lispro 100 UNIT/ML 3 ML VIAL SUBCUT ×2 (16:32→21:16)
[2022-08-19] MEDS: Ibuprofen 200 MG TABLET PO (16:37)
[2022-08-19 16:38] LABS: Glucose, Whole Blood 311 mg/dL (60-115)
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
[2022-08-19 17:47] LABS: Cholesterol 263 mg/dL; HDL Cholesterol 47 mg/dL; LDL Cholesterol Calculated 149 mg/dl; Triglycerides 335 mg/dL
--- NOTE | 2022-08-19 20:52 | PC.NURSE ---
t/w did a poc at 2002 when an error occured on the device showing a reading of 179 which was initially reported to RN and it did not transfer over through the system. The poc was repeated at 2052 with a reading of 301. RN AWARE.
[2022-08-19 20:54] LABS: Glucose, Whole Blood 301 mg/dL (60-115)
[2022-08-19] MEDS: Benztropine Mesylate 1 MG TABLET PO (21:06)
[2022-08-19] MEDS: HaloperidoL 5 MG TABLET 10 MG PO (21:06)
[2022-08-19] MEDS: metFORMIN HCl 500 MG TABLET PO (21:07)
[2022-08-19] MEDS: carBAMazepine 200 MG TABLET 400 MG PO (21:40)
[2022-08-19 22:10] LABS: Glucose, Whole Blood 393 mg/dL (60-115)
[2022-08-19 23:19] VITALS: BP 131/86; PULSE 100; RESP 16; TEMP 36.5; O2SAT 98
[2022-08-20] MEDS: LORazepam 1 MG TABLET 2 MG PO (02:27)
[2022-08-20] MEDS: OLANZapine 5 MG TABLET PO (02:27)
--- NOTE | 2022-08-20 04:36 | PC.NURSE ---
Patient currently in bed appears sleeping, no distress observed/reported, patient was up 0200 struggling to sleep due to medication change, PRN Ativan 2 mg PO and Olanzapine 5 mg po administered as ordered at 0227 with + effect, medication compliant, patient was tearful at time wanting to go back to prison, VSS, disposition per [facility] is section 12 inpatient DDS bed search, no update on bed search, will continue to monitor.
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
[2022-08-20 12:13] LABS: Glucose, Whole Blood 209 mg/dL (60-115)
[2022-08-20] MEDS: LORazepam 1 MG TABLET PO (12:16)
[2022-08-20] MEDS: carBAMazepine 200 MG TABLET 400 MG PO ×2 (12:18→21:13)
[2022-08-20] MEDS: HaloperidoL 5 MG TABLET 10 MG PO ×2 (12:18→21:11)
[2022-08-20] MEDS: metFORMIN HCl 500 MG TABLET PO ×2 (12:19→21:11)
[2022-08-20] MEDS: PARoxetine HCL 10 MG TABLET PO (12:19)
[2022-08-20] MEDS: Benztropine Mesylate 1 MG TABLET PO ×2 (12:20→21:11)
[2022-08-20] MEDS: Levothyroxine Sodium 88 MCG TABLET PO (12:45)
[2022-08-20] MEDS: Docusate Sodium 100 MG/10 ML LIQUID PO (12:46)
[2022-08-20] MEDS: Insulin Lispro 100 UNIT/ML 3 ML VIAL SUBCUT ×3 (13:13→21:09)
--- NOTE | 2022-08-20 15:16 | PC.NURSE ---
PT HAS BEEN CALM AND COOPERATIVE TODAY, HAD BEEN TOLERATING PO. TAKING MEDICATIONS WITHOUT DIFFICULTY. HAS STATED FEELING BETTER HAS BEEN SOCIAL WITH STAFF
--- NOTE | 2022-08-20 16:55 | PC.NURSE ---
PT AMB AROUND POD, JUST TOOK SHOWER
--- NOTE | 2022-08-20 17:51 | PC.NURSE ---
Received call from [facility] and spoke to Justyna. Patient to be admitted to [facility] at [address] [place], [place] at 9AM on 08/21/2022. Dr. Corona will oversee his care. Covid results and vital signs to be faxed to Lm at [phone] once available.
[2022-08-20 18:10] VITALS: BP 106/62; PULSE 99; RESP 16; TEMP 36.2; O2SAT 99
[2022-08-20 18:28] LABS: COVID-19 Test Negative (Negative); IDNOW Serial# 16C4AD1C
[2022-08-20 18:32] LABS: Glucose, Whole Blood 157 mg/dL (60-115)
[2022-08-20 21:06] LABS: Glucose, Whole Blood 190 mg/dL (60-115)
[2022-08-20 23:16] VITALS: BP 119/76; PULSE 108; RESP 16; TEMP 36.4; O2SAT 98
[2022-08-21] MEDS: OLANZapine 5 MG TABLET PO (00:54)
[2022-08-21] MEDS: LORazepam 1 MG TABLET 2 MG PO (00:54)
[2022-08-21] MEDS: Magnesium Hydrox/Alum Hydrox 30 ML ORAL.SUSP 15 ML PO (02:28)
--- NOTE | 2022-08-21 04:29 | PC.NURSE ---
@ 0245 [facility] CALLED FOR BLS TRANSPORT TO [facility],[address], [place],[address] WITH AN EXXPECTED ETA @ FACILITY FOR 9AM MICHAEL ANSWERS, TAKES PT INFO AND STATES THEY WILL BE HERE FOR THIS TRANSPORT
--- NOTE | 2022-08-21 06:33 | PC.NURSE ---
Patient currently in bed appears sleeping, patient struggled to fall sleep, Ativan 2 mg PO and Olanzapine 5 mg PO administered at 0054 with delayed effect, one episode on vomiting, reported heart burn and stomach upset, Maalox 15 ml administered as ordered with + effect, patient is accepted to [facility] with ETA 9 am on 08/21/2022, paper work ready/awaiting ambulance for transfer, vss, will continue to monitor.
--- NOTE | 2022-08-21 07:30 | PC.NURSE ---
PT IS SLEEPING RESP/EVEN AND UNLABORED.
[2022-08-21 08:33] LABS: Glucose, Whole Blood 237 mg/dL (60-115)
[2022-08-21 08:45] VITALS: RESP 19
--- NOTE | 2022-08-21 08:46 | PC.NURSE ---
pt poc of 237 taken this AM prior to breakfast. pt refused breakfast and continues to rest. Respirations even and unlabored. No signs of distress. RN aware
--- NOTE | 2022-08-21 09:03 | PC.NURSE ---
PT HAS REFUSED ALL HIS 0730 AND 0900 MEDS. PT IS A/O NO SOB/ELENO NOTED. NO ADVERSE EFFECT NOTED. PT AWARE OF PLAN OF CARE FOR TRANSFER TO [facility]. TODAY VIA EMS.
[2022-08-21 12:20] LABS: Glucose, Whole Blood 196 mg/dL (60-115)
--- NOTE | 2022-08-21 12:43 | PC.NURSE ---
pt is sitting in hallway eating a sandwich and drinking juice. pt is a/o x 2, pt did not know where he was, stated i am here everyday and kept repeating. pt has adamantly multiple times refused his insulin coverage and po meds that were due. pt denies any si/hi. will continue to monitor. pt to be transferred to [facility] today via ems.
[2022-08-21 13:12] VITALS: RESP 16
== END 2022-08-21 14:42 ==
PROVIDERS: Emergency Medicine; Physician Assistant Medical; Social Worker; Student in an Organized Health Care Education/Training Program; Emergency Provider Emergency Medicine Emergency Medical Services; PCP Internal Medicine
DX: F25.0 Schizoaffective disorder, bipolar type (principal); F79 Unspecified intellectual disabilities; F91.9 Conduct disorder, unspecified; F41.1 Generalized anxiety disorder; F43.0 Acute stress reaction; M79.10 Myalgia, unspecified site; R51.9 Headache, unspecified; R10.9 Unspecified abdominal pain; R07.89 Other chest pain; E11.9 Type 2 diabetes mellitus without complications; Z20.822 Contact with and (suspected) exposure to COVID-19; Z79.899 Other long term (current) drug therapy; Z79.4 Long term (current) use of insulin
CPT/HCPCS: 36415; 74177; 80053; 80061; 80307; 81001; 82009; 82150; 82550; 82947; 83036; 83615; 83690; 83735; 84443; 84484; 85025; 85610; 87635; 87651; 93005; 96360; 99285; Q9967

== ENCOUNTER 2022-08-21 14:59 | Emergency (ER) | payer MEDICARE, MEDICAID, SELFPAY ==
[2022-08-21 15:16] VITALS: BP 135/85; PULSE 106; RESP 16; TEMP 36.7; O2SAT 99; BMI 22.6
[2022-08-21 15:36] LABS: Glucose, Whole Blood 247 mg/dL (60-115)
--- NOTE | 2022-08-21 15:38 | ED.GENADULT ---
HPI - General Adult General Chief complaint: Psychiatric Symptoms Stated complaint: high bs Time Seen by Provider: 08/21/22 15:22 Source: patient and RN notes reviewed Mode of arrival: EMS History of Present Illness HPI narrative: The patient arrives via EMS after being transferred to [facility] for additional psychiatric hospitalization and evaluation. Apparently, EMS checked a fingerstick and was elevated and thought the patient's fingerstick was too high for admission to [facility], so the patient was returned to the emergency department. Severity: mild Related Data Home Medications Medication Instructions Recorded Confirmed benztropine 1 mg tablet 1 tab PO BID 05/03/22 08/15/22 docusate sodium 50 mg/5 mL oral 10 ml PO DAILY 05/03/22 08/15/22 liquid (Docu) donepezil 5 mg tablet 1 tab PO DAILY 05/03/22 08/15/22 haloperidol 10 mg tablet 1 tab PO BID 05/03/22 08/15/22 haloperidol 5 mg tablet 1 tab PO BID 05/03/22 08/15/22 levothyroxine 88 mcg tablet 1 tab PO DAILY 05/03/22 08/15/22 lorazepam 1 mg tablet 1 tab PO DAILY 05/03/22 08/15/22 paroxetine HCl 40 mg tablet 1 tab PO DAILY 05/03/22 08/15/22 acetaminophen 325 mg tablet 650 mg PO Q6H PRN PAIN/FEVER 05/25/22 08/15/22 (Tylenol) ammonium lactate 12 % topical cream 1 applic topical DAILY PRN Dry Skin 05/25/22 08/15/22 guaifenesin 100 mg/5 mL oral liquid 200 mg PO Q4H PRN Cough 05/25/22 08/15/22 ibuprofen 200 mg tablet 200 mg PO Q4H PRN PAIN/FEVER 05/25/22 08/15/22 lorazepam 1 mg tablet 1 tab PO Q6H PRN Anxiety 05/25/22 08/15/22 Previous Rx's Medication Instructions Recorded carbamazepine 200 mg tablet 400 mg PO BID #60 tabs 05/08/22 olanzapine 5 mg tablet 5 mg PO BID #14 tabs 05/26/22 Allergies Allergy/AdvReac Type Severity Reaction Status Date / Time latex [LATEX] Allergy Unknown NOT Verified 05/08/22 15:23 APPLICABLE From SEROQUEL Allergy Unknown UNKNOWN Uncoded 07/19/20 15:21 SEASONAL ALLERGIES Allergy Unknown UNKNOWN Uncoded 07/19/20 15:21 Review of Systems Constitutional: Constitutional: Reports as per HPI, Denies fever(s) and Denies weakness Cardiovascular: Cardiovascular: Denies chest pain and Denies dyspnea Respiratory: Respiratory: Denies dyspnea Neurologic: Denies weakness [facility] Past Medical History Medical History Dementia Depressive disorder Diabetes Diabetic retinopathy Hypothyroid Mild intellectual disabilities Psychotic disorder PTSD (post-traumatic stress disorder) Schizoaffective disorder, bipolar type Social History Social History Alcohol intake: unknown Patient Tobacco Use Status: Tobacco use Unknown Advance Directives: No Advance Directives Information Provided: No Physical Exam ED Vital Signs: Vital Signs - 24 hr 08/21/22 15:16 Temperature 98.0 F Pulse Rate 106 H Respiratory Rate 16 Blood Pressure 135/85 Pulse Oximetry 99 Oxygen Delivery Method Room Air BMI result Body Mass Index 22.6 Reviewed Const General: cooperative and comfortable Orientation/consciousness: patient oriented x3 Resp Effort & Inspection: normal respiratory effort and no cough Cardio Rate: regular rate Rhythm: regular rhythm GI Inspection: Yes normal to inspection Back/Spine/Pelvis Cervical Spine: normal cervical lordosis and cervical ROM normal Skin General skin exam: no rashes or lesions noted Neuro General: patient oriented x3 Extrem General: Yes normal to inspection and Yes full ROM Psych Attitude: cooperative Medical Decision Making MDM Narrative Medical decision making narrative: patient was re-evaluated here in the emergency department has a slightly elevated blood sugar in the 240 range. The patient's medically stable for return to [facility]. Case management here has been on the phone with Ulises Cho and they are requesting his return as soon as possible. Medical Records Medical records reviewed: Yes I reviewed the patient's medical records. Lab Data Lab results reviewed: Yes I reviewed the patient's lab results. Lab results narrative: Slightly elevated Labs: Lab Results 08/21/22 Range/Units 15:32 POC Glucose 247 H (60-115) mg/dL Discharge Plan Discharge Clinical Impression: Chronic hyperglycemia Patient Disposition: Xfer Psychiatric Hosp Transfer Details: [facility] Instructions: Diabetic Hyperglycemia (ED) Prescriptions: No Action docusate sodium [Docu] 50 mg/5 mL liquid 10 ml PO DAILY donepezil 5 mg tablet 1 tab PO DAILY haloperidol 5 mg tablet 1 tab PO BID levothyroxine 88 mcg tablet 1 tab PO DAILY haloperidol 10 mg tablet 1 tab PO BID benztropine 1 mg tablet 1 tab PO BID lorazepam 1 mg tablet 1 tab PO DAILY paroxetine HCl 40 mg tablet 1 tab PO DAILY carbamazepine 200 mg Tablet 400 mg PO BID Qty: 60 0RF acetaminophen [Tylenol] 325 mg Tablet 650 mg PO Q6H PRN (Reason: PAIN/FEVER) guaifenesin [Robitussin] 100 mg/5 mL Liquid 200 mg PO Q4H PRN (Reason: Cough) ibuprofen 200 mg Tablet 200 mg PO Q4H PRN (Reason: PAIN/FEVER) ammonium lactate 12 % cream 1 applic topical DAILY PRN (Reason: Dry Skin) lorazepam 1 mg tablet 1 tab PO Q6H PRN (Reason: Anxiety) olanzapine 5 mg tablet 5 mg PO BID Qty: 14 0RF Referrals: Matty Johnson MD [Primary Care Provider] -
== END 2022-08-21 18:40 ==
PROVIDERS: Emergency Provider Emergency Medicine; PCP Internal Medicine
DX: E11.65 Type 2 diabetes mellitus with hyperglycemia (principal); Z79.899 Other long term (current) drug therapy
CPT/HCPCS: 82947; 99285

== ENCOUNTER 2022-10-29 22:17 | Emergency (ER) | payer MEDICARE, MEDICAID, SELFPAY ==
[2022-10-29 22:19] VITALS: BP 147/90; PULSE 109; RESP 20; TEMP 36.6; O2SAT 100; BMI 25.1
[2022-10-29 22:34] LABS: MANUAL DIFF FLAG NO
[2022-10-29 22:35] LABS: Basophils Percent Auto 0.5 % (0-2); Eosinophils Absolute Auto 0.1 X10*3/uL (0.0-0.4); Hematocrit 39.7 % (42.0-52.0); Hemoglobin 13.3 g/dl (14.0-18.0); Imm Gran Abs Auto 0.01 X10*3/uL (0.00-0.03); Imm Gran Pct Auto 0.2 % (0.0-0.4); Lymphocytes Absolute Auto 2.6 X10*3/uL (1.2-4.9); Mean Corpuscular HGB Conc 33.5 g/dl (31.0-36.0); Mean Corpuscular Hemoglobin 30.2 pg (27.0-33.0); Mean Platelet Volume 8.8 fL (9.4-12.4); Monocytes Absolute Auto 0.5 X10*3/uL (0.1-1.2); Monocytes Percent Auto 7.4 % (2-11); Neutrophils Absolute Auto 2.8 x10*3/uL (2.0-8.3); Neutrophils Percent Auto 46.9 % (45-73); Platelet Count 232 X10*3/uL (160-400); Red Blood Count 4.41 X10*6/uL (4.60-5.80); Red Cell Distribution Width 12.6 % (11.0-16.0); White Blood Count 6.1 X10*3/uL (4.8-10.8)
[2022-10-29 23:00] LABS: Alanine Aminotransferase 57 U/L (0-40); Albumin Level 4.3 g/dL (3.5-5.0); Alkaline Phosphatase 148 U/L (39-117); Anion Gap 17 (12-20); Aspartate Amino Transferase 31 U/L (5-37); Bilirubin Direct < 0.2 mg/dL (0.0-0.5); Bilirubin Total 0.2 mg/dL (0.0-1.0); Blood Urea Nitrogen 8 mg/dL (9-16); Calcium 9.2 mg/dL (8.4-10.2); Carbon Dioxide 27 mmol/L (22-29); Chloride 98 mmol/L (96-108); Creatinine Clr Calc Pharmacy 116.2; Estimated Glomerular Filt Rate > 60; Glucose Random 243 mg/dL (60-115); Lipase 64 U/L (8-78); Potassium 4.1 mmol/L (3.3-5.1); Sodium 138 mmol/L (135-145)
[2022-10-30 00:02] VITALS: BP 132/89; PULSE 98; RESP 18; O2SAT 99
[2022-10-30 00:11] LABS: Glucose, Whole Blood 220 mg/dL (60-115)
--- NOTE | 2022-10-30 00:12 | ED_ITS ---
HPI - General Adult General Chief complaint: General Medical Stated complaint: High Blood Sugar Time Seen by Provider: 10/30/22 00:02 Source: EMS and other (senior living staff) Mode of arrival: EMS Limitations: other (Intellectual disability) History of Present Illness HPI narrative: Patient comes to the emergency room via EMS from a halfway. Earlier today, he was getting his glucose checked by staff. They reported that his glucose was high and they sent him to the emergency room. On arrival, patient's blood glucose 243. Patient is asymptomatic Related Data Home Medications Medication Instructions Recorded Confirmed benztropine 1 mg tablet 1 tab PO BID 05/03/22 08/15/22 docusate sodium 50 mg/5 mL oral 10 ml PO DAILY 05/03/22 08/15/22 liquid (Docu) donepezil 5 mg tablet 1 tab PO DAILY 05/03/22 08/15/22 haloperidol 10 mg tablet 1 tab PO BID 05/03/22 08/15/22 haloperidol 5 mg tablet 1 tab PO BID 05/03/22 08/15/22 levothyroxine 88 mcg tablet 1 tab PO DAILY 05/03/22 08/15/22 lorazepam 1 mg tablet 1 tab PO DAILY 05/03/22 08/15/22 paroxetine HCl 40 mg tablet 1 tab PO DAILY 05/03/22 08/15/22 acetaminophen 325 mg tablet 650 mg PO Q6H PRN PAIN/FEVER 05/25/22 08/15/22 (Tylenol) ammonium lactate 12 % topical cream 1 applic topical DAILY PRN Dry Skin 05/25/22 08/15/22 guaifenesin 100 mg/5 mL oral liquid 200 mg PO Q4H PRN Cough 05/25/22 08/15/22 ibuprofen 200 mg tablet 200 mg PO Q4H PRN PAIN/FEVER 05/25/22 08/15/22 lorazepam 1 mg tablet 1 tab PO Q6H PRN Anxiety 05/25/22 08/15/22 Previous Rx's Medication Instructions Recorded carbamazepine 200 mg tablet 400 mg PO BID #60 tabs 05/08/22 olanzapine 5 mg tablet 5 mg PO BID #14 tabs 05/26/22 Allergies Allergy/AdvReac Type Severity Reaction Status Date / Time latex [LATEX] Allergy Unknown NOT Verified 05/08/22 15:23 APPLICABLE From SEROQUEL Allergy Unknown UNKNOWN Uncoded 07/19/20 15:21 SEASONAL ALLERGIES Allergy Unknown UNKNOWN Uncoded 07/19/20 15:21 Review of Systems Review of Systems: Insert B of systems Yes Other (Review of systems limited, patient able to answer yes no questions) [facility] Past Medical History Medical History Dementia Depressive disorder Diabetes Diabetic retinopathy Hypothyroid Mild intellectual disabilities Psychotic disorder PTSD (post-traumatic stress disorder) Schizoaffective disorder, bipolar type Social History Social History Alcohol intake: never Patient Tobacco Use Status: Tobacco use Unknown Smoked in Last 30 Days: No Use of substances other than those prescribed or required for medical reasons: No Physical Exam ED Vital Signs: Vital Signs - 24 hr 10/29/22 22:19 10/30/22 00:02 Temperature 97.8 F Pulse Rate 109 H 98 Respiratory Rate 20 18 Blood Pressure 147/90 H 132/89 Pulse Oximetry 100 99 Oxygen Delivery Method Room Air Room Air BMI result Body Mass Index 25.1 Const Other: Appearance: Alert. No acute distress. Eyes: Pupils equal, round and reactive to light. ENT: Pharynx normal. Neck: Normal inspection. Neck supple. No lymph nodes noted. No crepitus CVS: Normal heart rate and rhythm. Pulses normal. Normal S1 and S2 Respiratory: No respiratory distress. Breath sounds normal. No Wheezing. No rales Abdomen: Soft and nontender. No rigidity. No distention. Skin: Skin warm and dry. Normal skin color. Normal skin turgor. Extremities: No lower extremity edema. No Lacerations. No Rash Neuro:No motor deficit. No sensory deficit. Moving all extremities. No slurred speech. CN 2 through 12 grossly intact Psych: calm, cooperative, normal affect Course Course Course Narrative: Patient's blood glucose was 243, then recheck and is 222 At this time, no treatment is indicated. It is possible that the glucometer at the facility is not well calibrated. Medical Decision Making Lab Data Result Diagrams: 10/29/22 22:30 10/29/22 22:30 Labs: Lab Results 10/29/22 10/29/22 10/29/22 Range/Units 22:30 22:30 23:58 WBC 6.1 (4.8-10.8) X10*3/uL RBC 4.41 L (4.60-5.80) X10*6/uL Hgb 13.3 L (14.0-18.0) g/dl Hct 39.7 L (42.0-52.0) % MCV 90.0 (80.0-98.0) fL MCH 30.2 (27.0-33.0) pg MCHC 33.5 (31.0-36.0) g/dl RDW 12.6 (11.0-16.0) % Plt Count 232 D (160-400) X10*3/uL MPV 8.8 L (9.4-12.4) fL Immature Gran % (Auto) 0.2 (0.0-0.4) % Neut % (Auto) 46.9 (45-73) % Lymph % (Auto) 43.0 H (20-40) % [place] % (Auto) 7.4 (2-11) % Eos % (Auto) 2.0 (0-4) % Baso % (Auto) 0.5 (0-2) % Lymph # (Auto) 2.6 (1.2-4.9) X10*3/uL [place] # (Auto) 0.5 (0.1-1.2) X10*3/uL Eos # (Auto) 0.1 (0.0-0.4) X10*3/uL Baso # (Auto) 0.0 (0.0-0.2) X10*3/uL Abs Immat Gran (auto) 0.01 (0.00-0.03) X10*3/uL Absolute Neuts (auto) 2.8 (2.0-8.3) x10*3/uL Absolute Nucleated RBC 0.000 (0.0-0.012) X10*3/uL Nucleated RBC % (auto) 0.0 (0.0-0.2) /100WBC Sodium 138 (135-145) mmol/L Potassium 4.1 (3.3-5.1) mmol/L Chloride 98 (96-108) mmol/L Carbon Dioxide 27 (22-29) mmol/L Anion Gap 17 (12-20) BUN 8 L (9-16) mg/dL Creatinine 0.81 (0.5-1.4) mg/dL Estim Creat Clear Calc 116.2 Estimated GFR > 60 POC Glucose 220 H (60-115) mg/dL Random Glucose 243 H D (60-115) mg/dL Calcium 9.2 (8.4-10.2) mg/dL Total Bilirubin 0.2 (0.0-1.0) mg/dL Direct Bilirubin < 0.2 (0.0-0.5) mg/dL AST 31 D (5-37) U/L ALT 57 H (0-40) U/L Alkaline Phosphatase 148 H (39-117) U/L Total Protein 7.0 (6.5-8.0) g/dL Albumin 4.3 (3.5-5.0) g/dL Lipase 64 (8-78) U/L Discharge Plan Discharge Clinical Impression: Diabetes Patient Disposition: Home, Self-Care Instructions: Type 2 Diabetes Management for Adults (ED) Additional Instructions: Please follow-up with your primary care physician tomorrow. If you have any worsening or new symptoms, please return to the emergency room or call 911 Prescriptions: No Action docusate sodium [Docu] 50 mg/5 mL liquid 10 ml PO DAILY donepezil 5 mg tablet 1 tab PO DAILY haloperidol 5 mg tablet 1 tab PO BID levothyroxine 88 mcg tablet 1 tab PO DAILY haloperidol 10 mg tablet 1 tab PO BID benztropine 1 mg tablet 1 tab PO BID lorazepam 1 mg tablet 1 tab PO DAILY paroxetine HCl 40 mg tablet 1 tab PO DAILY carbamazepine 200 mg Tablet 400 mg PO BID Qty: 60 0RF acetaminophen [Tylenol] 325 mg Tablet 650 mg PO Q6H PRN (Reason: PAIN/FEVER) guaifenesin [Robitussin] 100 mg/5 mL Liquid 200 mg PO Q4H PRN (Reason: Cough) ibuprofen 200 mg Tablet 200 mg PO Q4H PRN (Reason: PAIN/FEVER) ammonium lactate 12 % cream 1 applic topical DAILY PRN (Reason: Dry Skin) lorazepam 1 mg tablet 1 tab PO Q6H PRN (Reason: Anxiety) olanzapine 5 mg tablet 5 mg PO BID Qty: 14 0RF
--- NOTE | 2022-10-30 00:14 | PC.NURSE ---
Patient comes from [facility] for high blood sugar. re-checked blood sugar 220. 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 Dr. Miller notified of blood sugar.
--- OUTSIDE RECORDS SUMMARY | 2022-10-30 00:23 | XMS_ITS | Continuity of Care Document ---
:1970 Author Organization [facility] Address [address] [place] [address]- Care Team Providers Name Role Phone Elizabeth RODRIGUEZ, Matty Lau Primary Care Physician Encounter [facility] Date(s): 06/09/20 - 06/09/[address] [address]- [facility] Discharge Disposition: A-D/C Home Attending Physician: Go Barry MD Admitting Physician: oG Barry MD Referring Physician: Not on Staff, Referring MD Allergies, Adverse Reactions, Alerts Substance Reaction Severity Status Latex Active SEROquel Active Immunizations Given and Recorded Vaccine Date Status Refusal Reason tetanus/diphtheria/pertussis, acel(Tdap) 10/15/12 Given Medications Ativan 0.5 mg oral tablet 1 tablet = 0.5 mg, By Mouth, 3 times a day, 0 Refills, Maintenance, 11/04/18 9:28:03 EST Start Date: 11/04/18 Status: OrderedCogentin Tablet 1 mg, By Mouth, 2 times a day, Refills 0, Maintenance, 11/04/18 9:27:15 EST Start Date: 11/04/18 Status: OrderedColace Liquid By Mouth, 2 times a day, 0 Refills, Maintenance, 11/04/18 9:26:49 EST Start Date: 11/04/18 Status: OrderedDepakote 500 mg oral enteric coated tablet 1 tablet = 500 mg, By Mouth, 3 times a day, # 270 tablet, 0 Refills, Maintenance, 11/04/18 9:27:36 EST, EC Tablet Start Date: 11/04/18 Status: Orderedhaloperidol 10 mg oral tablet 10 mg, 1, tablet, By Mouth, 2 times a day, Refills 0, Maintenance, 11/04/18 9:27:48 EST Start Date: 11/04/18 Status: Orderedlevothyroxine 0.05 mg oral tablet 1 tablet = 50 mcg, By Mouth, Daily, 0 Refills, Maintenance, 11/04/18 9:27:03 EST Start Date: 11/04/18 Status: OrderedmetFORMIN 1000 mg oral tablet, extended release 1 tablet = 1,000 mg, By Mouth, Daily, with evening meal, # 30 tablet, 0 Refills, Maintenance, 11/04/18 9:28:11 EST, ER Tablet Start Date: 11/04/18 Status: OrderedPaxil 40 mg oral tablet 40 mg, 1, tablet, By Mouth, Daily, Refills 0, Maintenance, 11/04/18 9:27:56 EST Start Date: 11/04/18 Status: OrderedWellbutrin SR 200 mg/12 hours oral tablet, extended release 1 tablet = 200 mg, By Mouth, 2 times a day, 0 Refills, Maintenance, 11/04/18 9:27:27 EST Start Date: 11/04/18 Status: Ordered Vital Signs Most recent to oldest [Reference Range]: 1 2 Height 169 cm 169 cm (06/09/20 12:58 PM) (06/09/20 11:50 AM) Weight 65.5 kg 65.5 kg (06/09/20 12:58 PM) (06/09/20 11:50 AM) Oxygen Saturation [94-100 %] 100 % 100 % (06/09/20 12:58 PM) (06/09/20 11:50 AM) Pulse Rate [55-90 bpm] 85 bpm 86 bpm (06/09/20 12:58 PM) (06/09/20 11:50 AM) Body Mass Index [18.5-24.99] 22.93 (06/09/20 12:58 PM) Blood Pressure [90-138/55-84 mm Hg] 96/73 mm Hg 102/ 74 mm Hg (06/09/20 12:58 PM) (06/09/20 11:50 AM) Respiratory Rate [16-30 br/min] 18 br/min 16 br/mi n (06/09/20 12:58 PM) (06/09/20 11:50 AM) Temperature [96.8-100.4 DegF] 98.2 DegF 98.0 DegF (06/09/20 12:58 PM) (06/09/20 11:50 AM) Mode of Delivery (Oxygen) Room air Room air (06/09/20 12:58 PM) (06/09/20 11:50 AM) Blood pressure sites Arm, left Arm, left (06/09/20 12:58 PM) (06/09/20 11:50 AM) Temperature Route Oral Oral (06/09/20 12:58 PM) (06/09/20 11:50 AM) Dry Weight 65.5 kg 65.5 kg (06/09/20 12:58 PM) (06/09/20 11:50 AM) Social History Social History Type Response Smoking Status Never smoker entered on: 08/20/15 Sex
--- OUTSIDE RECORDS SUMMARY | 2022-10-30 00:23 | XMS_ITS | Continuity of Care Document ---
:1970 Author Organization [facility] Address [address] [place] [id number]- Care Team Providers Name Role Phone Matty Johnson MD Primary Care Physician Encounter [facility] Date(s): 01/27/21 - 01/28/[address] [id number] Encounter Diagnosis General weakness (Final) - 01/25/21 Discharge Disposition: A-D/C Home Attending Physician: Jeana Rm DO Admitting Physician: Gregg Gipson MD Referring Physician: Not on Staff, Referring MD Allergies, Adverse Reactions, Alerts Substance Reaction Severity Status Latex Active SEROquel Active Immunizations Given and Recorded Vaccine Date Status Refusal Reason tetanus/diphtheria/pertussis, acel(Tdap) 10/15/12 Given Medications ammonium lactate 12% topical cream See Instructions, apply and rub in well daily in evening, 0 Refills, Maintenance, 01/25/21 20:39:00 EDT, Partial fill upon patient request if the prescription is for a schedule II opioid drug. Start Date: 01/25/21 Status: OrderedAtivan 0.5 mg oral tablet 1 tablet = 0.5 mg, By Mouth, Daily, PRN Agitation, 0 Refills, Maintenance, 01/28/21 12:07:00 EDT, Tablet, Partial fill upon patient request if the prescription is for a schedule II opioid drug. Start Date: 01/28/21 Status: OrderedbuPROPion 100 mg/12 hours (SR) oral tablet, extended release 1 tablet = 100 mg, By Mouth, Every 12 hours, 0 Refills, Maintenance, 01/28/21 12:07:00 EDT, SR Tablet, Partial fill upon patient request if the prescription is for a schedule II opioid drug. Start Date: 01/28/21 Status: OrderedCogentin Tablet 1 mg, By Mouth, 2 times a day, Refills 0, Maintenance, 11/04/18 9:27:15 EST Start Date: 11/04/18 Status: OrderedColace sodium 100 mg oral capsule 100 mg, 1, capsule, By Mouth, Daily, Refills 0, Maintenance, 01/25/21 21:46:00 EDT, Partial fill upon patient request if the prescription is for a schedule II opioid drug. Start Date: 01/25/21 Status: Ordereddivalproex sodium 500 mg oral tablet, extended release 3 tablet = 1,500 mg, By Mouth, Daily at supper, 0 Refills, Maintenance, 01/25/21 20:39:00 EDT, Partial fill upon patient request if the prescription is for a schedule II opioid drug. Start Date: 01/25/21 Status: Orderedhaloperidol 5 mg oral tablet 15 mg, 3, tablet, By Mouth, 2 times a day, Refills 0, Maintenance, 01/28/21 12:07:00 EDT, Partial fill upon patient request if the prescription is for a schedule II opioid drug. Start Date: 01/28/21 Status: Orderedlevothyroxine 75 mcg (0.075 mg) oral tablet = 75 mcg, By Mouth, Daily, 0 Refills, Maintenance, 01/28/21 12:07:00 EDT, Tablet, Partial fill upon patient request if the prescription is for a schedule II opioid drug. Start Date: 01/28/21 Status: OrderedPaxil 40 mg oral tablet 40 mg, 1, tablet, By Mouth, Daily, Refills 0, Maintenance, 11/04/18 9:27:56 EST Start Date: 11/04/18 Status: Ordered Results Radiology Reports Exam Date Time Procedure Performing Provider Status 01/25/21 4:16 PM Chest 2 Views Frontal and Lat Delia Rodriguez; Auth (Verified) Notes:(Chest 2 Views Frontal and Lat) Reason For Exam: Shortness of Breath RESULT: Chest 2 Views Frontal and Lat Chest 2 Views Frontal and Lat Hx of Present Illness: pt presesnts from [facility], staff states pt has been more lethargic, poor po intake, and weak. seen by PCT today - per staff has been disoriented during the day. staff denies injury, or sick contact. also ?stool incontinence which is new.; Reason: Shortness of Breath; ClinicalQuestion(s): CHF COMPARISON: Chest x-ray 01/01/2021. FINDINGS: LINES AND TUBES: None. LUNGS AND PLEURA: No focal opacity or volume loss. Normal pulmonary vascularity. No pleural effusion. No pneumothorax. HEART, MEDIASTINUM AND MELISSA: Heart is normal in size. Normal upper mediastinal and hilar contour. BONES AND SOFT TISSUES: No acute abnormality. Cholecystectomy clips are present. IMPRESSION: No acute abnormality. WSN: [id number] Ordering Physician: Stephani Ornelas Dictated By: Juan Ramon Connelly MD Dictated Date/Time: 01/25/21 4:18 pm Reviewed By: Juan Ramon Connelly MD Signed By: Juan Ramon Connelly MD Signed Date/Time: 01/25/21 4:18 pm Transcribed By: ABENA Transcribed Date/Time: 01/25/21 4:17 pm Vital Signs Most recent to oldest 1 2 3 [Reference Range]: Height 160 cm 160 cm 160 cm (01/28/21 7:16 AM) (01/28/21 2:54 AM) (01/27/21 7:0 8 PM) Weight 54.8 kg (01/26/21 2:39 PM) Oxygen Saturation [94-100 %] 77 % 93 % 92 % *L* *L* *L* (01/28/21 7:16 AM) (01/28/21 2:54 AM) (01/27/21 7:0 8 PM) Pulse Rate [55-90 bpm] 77 bpm 78 bpm 52 bpm (01/28/21 7:16 AM) (01/28/21 2:54 AM) *L* (01/27/21 7:08 PM ) Body Mass Index [18.5-24.99] 21.41 (01/26/21 2:39 PM) Blood Pressure [90-138/55-84 mm 114/80 mm Hg 95/59 mm Hg 103/66 mm Hg Hg] (01/28/21 7:16 AM) (01/28/21 2:54 AM) (01/27/21 7:0 8 PM) Respiratory Rate [16-30 br/min] 16 br/min 16 br/min 18 br/min (01/28/21 7:16 AM) (01/28/21 2:54 AM) (01/27/21 7:0 8 PM) Temperature [96.8-100.4 DegF] 97.6 DegF 97.8 DegF 98 .3 DegF (01/28/21 2:54 AM) (01/27/21 7:08 PM) (01/27/21 3:3 0 PM) Mode of Delivery (Oxygen) Room air Room air Room a ir (01/28/21 7:16 AM) (01/28/21 2:54 AM) (01/27/21 7:0 8 PM) Blood pressure sites Arm, left Arm, right Arm, left (01/28/21 7:16 AM) (01/28/21 2:54 AM) (01/27/21 7:0 8 PM) Temperature Route Oral Oral Oral (01/28/21 2:54 AM) (01/27/21 7:08 PM) (01/27/21 3:3 0 PM) Dry Weight 54.8 kg (01/26/21 2:39 PM) Social History Social History Type Response Smoking Status Never smoker entered on: 08/20/15 Sex
--- OUTSIDE RECORDS SUMMARY | 2022-10-30 00:23 | XMS_ITS | Continuity of Care Document ---
:1970 Author Organization [facility] Address [address] [place] [phone]- Care Team Providers Name Role Phone Elizabeth RODRIGUEZ, Matty Lau Primary Care Physician Encounter [facility] Date(s): 01/29/22 - 02/03/[address] [address] [[email or web address] Encounter Diagnosis Aspiration pneumonitis (Final) - 01/29/22 Discharge Disposition: A-D/C Home Attending Physician: Jaime Cano MD Admitting Physician: Padma RODRIGUEZ, Ran Peters Referring Physician: Not on Staff, Referring MD Allergies, Adverse Reactions, Alerts Substance Reaction Severity Status Latex Active SEROquel Active Immunizations Given and Recorded Vaccine Date Status Refusal Reason tetanus/diphtheria/pertussis, acel(Tdap) 10/15/12 Given Medications ammonium lactate 12% topical cream 1 application, Topically, Daily, PRN as needed, feet/body, 0 Refills, Maintenance, 01/25/21 20:39:00EDT, ; Start Date: 01/25/21 Status: OrderedAtivan 0.5 mg oral tablet 1 tablet = 0.5 mg, By Mouth, Daily in AM, PRN Agitation, 0 Refills, Maintenance, 01/28/21 12:07:00 EDT, Tablet, ; Start Date: 01/28/21 Status: OrderedBacitracin Topical Oint 1 application, Topically, 2 times a day, PRN as needed, Maintenance Start Date: 01/29/22 Status: OrderedCogentin Tablet 1 mg, By Mouth, 2 times a day, Maintenance, 01/29/22 12:06:00 EDT, ; Start Date: 01/29/22 Status: OrderedColace sodium 100 mg oral capsule 100 mg, 1, capsule, By Mouth, Daily, Refills 0, Maintenance, 01/25/21 21:46:00 EDT, ; Start Date: 01/25/21 Status: Ordereddivalproex sodium 500 mg oral tablet, extended release 3 tablet = 1,500 mg, By Mouth, Daily at supper, 5pm, 0 Refills, Maintenance, 01/25/21 20:39:00 EDT, ; Start Date: 01/25/21 Status: Ordereddonepezil 5 mg oral tablet 5 mg, 1, tablet, By Mouth, Daily at bedtime, # 90 tablet, Refills 0, Maintenance, 01/29/22 3:14:00 EDT, Partial fill upon patient request if the prescription is for a schedule II opioid drug. Start Date: 01/29/22 Status: OrderedguaiFENesin 100 mg/5 mL oral liquid 10 mL = 200 mg, By Mouth, Every 4 hours, PRN Congestion/COUGH/headaches, Maintenance, 01/29/22 12:04:00 EDT, Liquid, ; Start Date: 01/29/22 Status: Orderedhaloperidol 5 mg oral tablet 10 mg, 2, tablet, By Mouth, 2 times a day, 8am & 8pm, Refills 0, Maintenance, 01/28/21 12:07:00 EDT, ; Start Date: 01/28/21 Status: Orderedhaloperidol 5 mg oral tablet 5 mg, 1, tablet, By Mouth, 2 times a day, 8am & 8pm, Maintenance, 01/29/22 12:09:00 EDT, ; Start Date: 01/29/22 Status: Orderedibuprofen 200 mg oral capsule 2 capsule = 400 mg, By Mouth, Every 4 hours, PRN for fever/PAIN, 0 Refills, Maintenance, 01/29/22 3:13:00 EDT, Capsule, ; Start Date: 01/29/22 Status: Orderedlevothyroxine 88 mcg (0.088 mg) oral capsule 1 capsule = 88 mcg, By Mouth, Daily in AM, Maintenance, 01/29/22 12:01:00 EDT, Capsule, ; Start Date: 01/29/22 Status: OrderedMisc Rx 1 can, By Mouth, 2 times a day, Maintenance, GLUCERNA, 01/29/22 12:12:00 EDT, Supply Start Date: 01/29/22 Status: OrderedPaxil 40 mg oral tablet 40 mg, 1, tablet, By Mouth, Daily in AM, Refills 0, Maintenance, 11/04/18 9:27:56 EST Start Date: 11/04/18 Status: OrderedTylenol 8 Hour 650 mg oral tablet, extended release 2 tablet = 1,300 mg, By Mouth, Every 6 hours, PRN as needed for fever/PAIN, 0 Refills, Maintenance, 01/29/22 3:12:00 EDT, ER Tablet, ; Start Date: 01/29/22 Status: OrderedWellbutrin SR 200 mg/12 hours oral tablet, extended release 1 tablet = 200 mg, By Mouth, Daily in AM, Maintenance, 01/29/22 12:07:00 EDT, ER Tablet, ; Start Date: 01/29/22 Status: Ordered Problem List Condition Effective Dates Status Health Status Informant COVID-19(Confirmed)1 02/03/22 Active 1Problem added by Discern Expert Results Orders for Microbiology Reports Name Date Blood Culture 01/28/22 Blood Culture #2 01/28/22 Microbiology Reports TEST:Blood Culture, Second Order STATUS:Auth (Verified) BODY SITE: SOURCE:Blood COLLECTED DATE/TIME:01/28/22 8:33 PMBlood Culture, Second Order SPECIMEN DESCRIPTION : BLOOD R HAND SPECIAL REQUESTS : NONE CULTURE : NO GROWTH 5 DAYS. REPORT STATUS : FINAL 02/03/2022TEST:Blood Culture STATUS:Auth (Verified) BODY SITE: SOURCE:Blood COLLECTED DATE/TIME:01/28/22 8:20 PMBlood Culture SPECIMEN DESCRIPTION : BLOOD L HAND SPECIAL REQUESTS : NONE CULTURE : NO GROWTH 5 DAYS. REPORT STATUS : FINAL 2Radiology Reports Exam Date Time Procedure Performing Provider Status 01/28/22 7:03 PM Chest 2 Views Frontal and Lat Isadora Soto; Au th (Verified) Notes:(Chest 2 Views Frontal and Lat) Reason For Exam: Shortness of Breath RESULT: Chest 2 Views Frontal and Lat Chest 2 Views Frontal and Lat Hx of Present Illness: chest pain since this am; Reason: Shortness of Breath; Clinical Question(s): CHF COMPARISON: 01/21/2022 FINDINGS: LINES AND TUBES: None. LUNGS AND PLEURA: Clear lungs. Normal pulmonary vascularity. No pleural effusion. No pneumothorax. HEART, MEDIASTINUM AND MELISSA: Heart is normal in size. Normal upper mediastinal and hilar contour. BONES AND SOFT TISSUES: No acute abnormality. Chronic left rib fracture deformities similar to prior. IMPRESSION: No acute abnormality. WSN: [id number] Ordering Physician: Eldon Carty Dictated By: Lm Morrison MD Dictated Date/Time: 01/28/22 7:10 pm Reviewed By: Lm Morrison MD Signed By: Lm Morrison MD Signed Date/Time: 01/28/22 7:10 pm Transcribed By: ABENA Transcribed Date/Time: 01/28/22 7:07 pm Vital Signs Most recent to oldest 1 2 3 [Reference Range]: Height 170 cm 170 cm 170 cm (02/03/22 7:20 AM) (02/02/22 5:05 PM) (02/02/22 8:45 A M) Weight 76.7 kg 77.8 kg 77.8 kg (01/30/22 6:20 AM) (01/29/22 9:42 PM) (01/29/22 2:1 8 PM) Oxygen Saturation [94-100 %] 95 % 97 % 97 % (02/03/22 7:20 AM) (02/02/22 9:00 PM) (02/02/22 5:05 P M) Pulse Rate [55-90 bpm] 93 bpm 88 bpm 92 bpm *H* (02/02/22 9:00 PM) *H* (02/03/22 7:20 AM) (02/02/22 5:05 PM ) Body Mass Index [18.5-24.99] 26.92 *H* (01/29/22 9:42 PM) Blood Pressure [90-138/55-84 mm 119/70 mm Hg 98/71 mm Hg 113/68 mm Hg Hg] (02/03/22 7:20 AM) (02/02/22 9:00 PM) (02/02/22 5:05 P M) Respiratory Rate [16-30 br/min] 18 br/min 18 br/min 20 br/min (02/03/22 7:20 AM) (02/02/22 9:00 PM) (02/02/22 5:05 P M) Temperature [96.8-100.4 DegF] 98.5 DegF 98.4 DegF 97 .2 DegF (02/03/22 7:20 AM) (02/02/22 9:00 PM) (02/02/22 5:05 P M) Liters per Minute 0 L/min (01/28/22 6:03 PM) Mode of Delivery (Oxygen) Room air Room air Room a ir (02/03/22 7:20 AM) (02/02/22 9:00 PM) (02/02/22 5:05 P M) Blood pressure sites Arm, right Arm, right Arm, left (02/03/22 7:20 AM) (02/02/22 9:00 PM) (02/02/22 5:05 P M) Temperature Route Oral Oral Oral (02/03/22:20 AM) (02/02/22 9:00 PM) (02/02/22 5:05 P M) Dry Weight 77.8 kg (01/29/22 9:42 PM) Weight Obtained Via Bed scale (01/29/22 2:18 PM) Social History Social History Type Response Smoking Status Never smoker entered on: 08/20/15 Sex
--- OUTSIDE RECORDS SUMMARY | 2022-10-30 00:23 | XMS_ITS | Continuity of Care Document ---
:1970 Author Organization [facility] Address [address] [place] [id number]- Care Team Providers Name Role Phone Matty Johnson MD Primary Care Physician [id number] Date(s): 01/21/22 - 01/22/[address] [address]- Discharge Disposition: A-D/C Home Attending Physician: Tyson Gonzales DO Admitting Physician: Tyson Gonzales DO Referring Physician: Not on Staff, Referring MD [...] Exam Date Time Procedure Performing Provider Status 01/21/22 8:05 PM Chest Portable Shania Hurtado (Verified) Notes:(Chest Portable) Reason For Exam: CP;Other:RESULT: Chest Portable Chest Portable Hx of Present Illness: Chest pain after eating food; Reason: Other:; CP; Clinical Question(s): Pneumonia COMPARISON: 01/25/2021 FINDINGS: LINES AND TUBES: None. LUNGS AND PLEURA: Clear lungs. Normal pulmonary vascularity. No pleural effusion. No pneumothorax. HEART, MEDIASTINUM AND MELISSA: Heart is normal in size. Normal upper mediastinal and hilar contour. BONES AND SOFT TISSUES: Multiple old left-sided rib fractures. IMPRESSION: No acute abnormality. WSN: [id number] Ordering Physician: Shantell De Dictated By: Chuy Mohamud MD Dictated Date/Time: 01/21/22 8:38 pm Reviewed By: Chuy Mohamud MD Signed By: Chuy Mohamud MD Signed Date/Time: 01/21/22 8:38 pm Transcribed By: ABENA Transcribed Date/Time: 01/21/22 8:37 pm Vital Signs Most recent to oldest 1 2 3 [Reference Range]: Height 173 cm 173 cm (01/21/22 8:33 PM) (01/21/22 7:39 PM) Weight 60 kg 60 kg (01/21/22 8:33 PM) (01/21/22 7:39 PM) Oxygen Saturation [94-100 %] 99 % 98 % 96 % (01/22/22 12:47 AM) (01/21/22 10:49 PM) (01/21/22 9 :25 PM) Pulse Rate [55-90 bpm] 82 bpm 85 bpm 87 bpm (01/22/22 12:47 AM) (01/21/22 10:49 PM) (01/21/22 9 :25 PM) Body Mass Index [18.5-24.99] 20.05 (01/21/22 8:33 PM) Blood Pressure [90-138/55-84 116/77 mm Hg 116/71 mm Hg 131 /71 mm Hg mm Hg] (01/22/22 12:47 AM) (01/21/22 10:49 PM) (01/21/22 9 :25 PM) Respiratory Rate [16-30 15 br/min 14 br/min 14 br/mi n br/min] *L* *L* *L* (01/22/22 12:47 AM) (01/21/22 10:49 PM) (01/21/22 9 :25 PM) Temperature [96.8-100.4 DegF] 97.9 DegF 98.3 DegF (01/21/22 8:33 PM) (01/21/22 7:39 PM) Mode of Delivery (Oxygen) Room air Room air Room a ir (01/22/22 12:47 AM) (01/21/22 10:49 PM) (01/21/22 9 :25 PM) Blood pressure sites Arm, left Arm, left Arm, left (01/22/22 12:47 AM) (01/21/22 10:49 PM) (01/21/22 9 :25 PM) Temperature Route Oral Oral (01/21/22 8:33 PM) (01/21/22 7:39 PM) Dry Weight 60 kg 60 kg (01/21/22 8:33 PM) (01/21/22 7:39 PM) Social History Social History Type Response Smoking Status Never smoker entered on: 08/20/15 Sex
--- OUTSIDE RECORDS SUMMARY | 2022-10-30 00:23 | XMS_ITS | Continuity of Care Document ---
:1970 Author Organization [facility] Address [address] [place] [phone]- Care Team Providers Name Role Phone Elizabeth RODRIGUEZ, Matty Lau Primary Care Physician Encounter [facility] Date(s): 01/01/21 - 01/01/[address] [address]- Discharge Disposition: A-D/C Home Attending Physician: Demond Bautista DO Admitting Physician: Demond Bautista DO Referring Physician: Not on Staff, Referring [...] 9:27:27 EST Start Date: 11/04/18 Status: Ordered Results Radiology Reports Exam Date Time Procedure Performing Provider Status 01/01/21 4:37 PM Chest 2 Views Frontal and Lat Aleshia Harrison (Verified) Notes:(Chest 2 Views Frontal and Lat) Reason For Exam: Other:CHFRESULT: Chest 2 Views Frontal and Lat Chest 2 Views Frontal and Lat Hx of Present Illness: weakness, decrease urine output, weight loss and decrease PO; Reason: Other; Clinical Question(s): CHF COMPARISON: 04/22/2012. FINDINGS: LINES AND TUBES: None. LUNGS AND PLEURA: Clear lungs. Normal pulmonary vascularity. No pleural effusion. No pneumothorax. HEART, MEDIASTINUM AND MELISSA: Heart is normal in size. Normal upper mediastinal and hilar contour. BONES AND SOFT TISSUES: No acute abnormality. IMPRESSION: No acute abnormality. WSN: [id number] Ordering Physician: Dimitri Pena Dictated By: Onel Fields MD Dictated Date/Time: 01/01/21 4:42 pm Reviewed By: Onel Fields MD Signed By: Onel Fields MD Signed Date/Time: 01/01/21 4:42 pm Transcribed By: ABENA Transcribed Date/Time: 01/01/21 4:41 pm Vital Signs Most recent to oldest [Reference 1 2 3 Range]: Oxygen Saturation [94-100 %] 97 % 93 % 99 % (01/01/21 9:48 PM) *L* (01/01/21 3:51 PM ) (01/01/21 7:13 PM) Pulse Rate [55-90 bpm] 79 bpm 80 bpm 75 bpm (01/01/21 9:48 PM) (01/01/21 7:13 PM) (01/01/21 3:51 P M) Blood Pressure [90-138/55-84 mm 110/69 mm Hg 94/54 mm Hg 94/65 mm Hg Hg] (01/01/21 9:48 PM) (01/01/21 7:13 PM) (01/01/21 3:51 P M) Respiratory Rate [16-30 br/min] 17 br/min 18 br/min 16 br/min (01/01/21 9:48 PM) (01/01/21 7:13 PM) (01/01/21 3:51 P M) Temperature [96.8-100.4 DegF] 97.6 DegF 97.5 DegF 97 .8 DegF (01/01/21 9:48 PM) (01/01/21 7:13 PM) (01/01/21 3:51 P M) Mode of Delivery (Oxygen) Room air Room air Room a ir (01/01/21 9:48 PM) (01/01/21 7:13 PM) (01/01/21 3:51 P M) Temperature Route Oral Oral Oral (01/01/21 9:48 PM) (01/01/21 7:13 PM) (01/01/21 3:51 P M) Social History Social History Type Response Smoking Status Never smoker entered on: 08/20/15 Sex
--- OUTSIDE RECORDS SUMMARY | 2022-10-30 00:23 | XMS_ITS | Continuity of Care Document ---
:1970 Author Organization [facility] Address [address] [place] [address]- Care Team Providers Name Role Phone Elizabeth RODRIGUEZ, Matty Lau Primary [id number] Date(s): 02/23/21 - 02/23/[address] [address]- Encounter Diagnosis Head injury (Final) - 02/23/21 Discharge Disposition: A-D/C Home Attending Physician: Toni Balderrama MD Admitting Physician: Toni Balderrama MD Referring Physician: Not on Staff, Referring [...] 9:27:56 EST Start Date: 11/04/18 Status: Ordered Vital Signs Most recent to oldest 1 2 3 [Reference Range]: Height 168 cm (02/23/21 9:46 AM) Weight 59 kg (02/23/21 9:46 AM) Oxygen Saturation [94-100 %] 100 % 100 % 100 % (02/23/21 1:42 PM) (02/23/21 12:00 PM) (02/23/21 9: 46 AM) Pulse Rate [55-90 bpm] 82 bpm 78 bpm 91 bpm (02/23/21 1:42 PM) (02/23/21 12:00 PM) *H* (02/23/21 9:46 AM ) Blood Pressure [90-138/55-84 98/63 mm Hg 101/65 mm Hg 97/ 61 mm Hg mm Hg] (02/23/21 1:42 PM) (02/23/21 12:00 PM) (02/23/21 9: 46 AM) Respiratory Rate [16-30 18 br/min 18 br/min 16 br/mi n br/min] (02/23/21 1:42 PM) (02/23/21 12:00 PM) (02/23/21 9: 46 AM) Temperature [96.8-100.4 DegF] 97.8 DegF 97.8 DegF (02/23/21 12:00 PM) (02/23/21 9:46 AM) Mode of Delivery (Oxygen) Room air Room air Room a ir (02/23/21 1:42 PM) (02/23/21 12:00 PM) (02/23/21 9: 46 AM) Temperature Route Oral Oral (02/23/21 12:00 PM) (02/23/21 9:46 AM) Dry Weight 59 kg (02/23/21 9:46 AM) Social History Social History Type Response Smoking Status Never smoker entered on: 08/20/15 Sex
[2022-10-30 03:52] LABS: Glucose, Whole Blood 209 mg/dL (60-115)
== END 2022-10-30 00:30 | disposition home or self-care (01) ==
PROVIDERS: Emergency Provider Emergency Medicine; PCP Internal Medicine
DX: E11.65 Type 2 diabetes mellitus with hyperglycemia (principal); I10 Essential (primary) hypertension; F25.1 Schizoaffective disorder, depressive type; Z79.899 Other long term (current) drug therapy
CPT/HCPCS: 36415; 80048; 80076; 82947; 83690; 85025; 99283; 99284

== ENCOUNTER 2023-05-12 15:16 | Outpatient (REF) | payer MEDICARE, MEDICAID, SELFPAY ==
[2023-05-12 15:44] LABS: MANUAL DIFF FLAG NO
[2023-05-12 17:43] LABS: Basophils Percent Auto 0.4 % (0-2); Eosinophils Absolute Auto 0.1 X10*3/uL (0.0-0.4); Eosinophils Percent Auto 1.2 % (0-4); Hematocrit 40.3 % (42.0-52.0); Hemoglobin 13.3 g/dl (14.0-18.0); Imm Gran Abs Auto 0.09 X10*3/uL (0.00-0.03); Imm Gran Pct Auto 1.1 % (0.0-0.4); Lymphocytes Percent Auto 23.7 % (20-40); Mean Corpuscular Hemoglobin 30.7 pg (27.0-33.0); Mean Corpuscular Volume 93.1 fL (80.0-98.0); Mean Platelet Volume 10.7 fL (9.4-12.4); Monocytes Absolute Auto 0.5 X10*3/uL (0.1-1.2); Monocytes Percent Auto 6.3 % (2-11); Neutrophils Absolute Auto 5.7 x10*3/uL (2.0-8.3); Neutrophils Percent Auto 67.3 % (45-73); Platelet Count 275 X10*3/uL (160-400); Red Blood Count 4.33 X10*6/uL (4.60-5.80); Red Cell Distribution Width 13.7 % (11.0-16.0); White Blood Count 8.5 X10*3/uL (4.8-10.8)
[2023-05-12 17:44] LABS: Appearance Urine Clear; Color Urine Yellow; Glucose Urine UA Negative (Negative); Leukocyte Esterase Urine Negative (Negative); Nitrite Urine Negative (Negative); Urine Blood Negative (Negative); Urine Ketones Negative (Negative); Urine Protein Negative (Neg-Trace)
[2023-05-12 18:17] LABS: Alanine Aminotransferase 22 U/L (0-40); Albumin Level 4.6 g/dL (3.5-5.0); Alkaline Phosphatase 154 U/L (39-117); Anion Gap 18 (12-20); Aspartate Amino Transferase 15 U/L (5-37); Bilirubin Total 0.2 mg/dL (0.0-1.0); Blood Urea Nitrogen 9 mg/dL (9-16); Calcium 9.9 mg/dL (8.4-10.2); Carbon Dioxide 24 mmol/L (22-29); Chloride 103 mmol/L (96-108); Estimated Glomerular Filt Rate > 60; Glucose Random 137 mg/dL (60-115); Potassium 4.2 mmol/L (3.3-5.1); Sodium 141 mmol/L (135-145); Total Protein 7.4 g/dL (6.5-8.0)
== END 2023-05-12 15:17 | disposition home or self-care (01) ==
LOC: HO.LAB 15:16
PROVIDERS: PCP Internal Medicine; Visit Provider Psychiatry & Neurology Neurology
DX: G30.9 Alzheimer's disease, unspecified (principal)
CPT/HCPCS: 36415; 80053; 81003; 85025

== ENCOUNTER 2024-12-07 08:49 | Emergency (ER) | payer MEDICARE, MEDICAID, SELFPAY ==
--- NOTE | ~2024-12-07 | CT_ITS ---
EXAMINATION: CT CERVICAL SPINE WITHOUT CONTRAST CLINICAL INFORMATION: Status post fall. COMPARISON: None available. TECHNIQUE: Contiguous axial images through the cervical spine using 3 mm collimation with bone and soft tissue algorithm. Sagittal and coronal reformatted images acquired. This CT examination was performed using dose optimization techniques as appropriate, variously including the following: *Automated exposure control *Adjustment of mA and/or kV according to patient size (this includes techniques or standardized protocols for targeted exams where dose is matched to indication/reason for exam; i.e. extremities or head) *Use of iterative reconstruction technique DLP: 335.18 mGy centimeter. FINDINGS: Limited by patient's positioning in the CT scanner. Craniocervical junction is intact. There is normal alignment of the vertebral bodies and the facet joints. Marginal osteophyte formation and endplate sclerosis and decreased intervertebral disc height at C6-7 and to a lesser extent C5-6, C4-5 and C7-T1. Reverse curvature apex at C6. Ankylosis of the right C2-3 facet. Rudimentary ribs of T1 versus supernumerary cervical vertebra. C1 is intact. C2 is intact. C3 is intact. C4 is intact. C5 is intact. C6 is intact. C7 is intact No gross prevertebral compartment hematoma. Tympanic cavities and mastoid air cells are aerated. CT/CT cervical spine wo IV con IMPRESSION: Multilevel spondylosis without acute fracture or trauma-related listhesis. Fleischner guidelines were followed. Electronically signed by: Yusuf Fletcher MD 12/07/2024 11:33 AM [facility]
--- NOTE | ~2024-12-07 | CT_ITS ---
EXAMINATION: CT FACIAL BONES WITHOUT CONTRAST CLINICAL INFORMATION: Status post fall. COMPARISON: None available. TECHNIQUE: Contiguous axial images through the maxillofacial bones using 3 mm collimation with bone and soft tissue algorithm. Sagittal and coronal reformatted images acquired. This CT examination was performed using dose optimization techniques as appropriate, variously including the following: *Automated exposure control *Adjustment of mA and/or kV according to patient size (this includes techniques or standardized protocols for targeted exams where dose is matched to indication/reason for exam; i.e. extremities or head) *Use of iterative reconstruction technique. DLP: 476.26 mGy centimeters. FINDINGS: Nasal bones, nasal septum and vomer are intact. The orbits are intact. The orbital fissures and orbital apices are intact. The zygomatic arcs are intact. The maxilla and pterygoid plates are intact. The mandible is intact. Soft tissue contusion involving the nose and inferior preseptal left periorbital premaxilla. The eyes are intact. No hematoma within the intraconal or the extraconal compartments. Mucosal thickening without air-fluid levels in the ethmoid air cells. CT/CT facial bones wo IV con IMPRESSION: No acute fracture, maxillofacial bones. Soft tissue contusion/hematoma, nose and preseptal left orbital. Electronically signed by: Yusuf Fletcher MD 12/07/2024 11:43 AM [facility]
--- NOTE | ~2024-12-07 | CT_ITS ---
EXAMINATION: CT HEAD WITHOUT CONTRAST CLINICAL INFORMATION: fall COMPARISON: June 18, 2021 TECHNIQUE: Contiguous axial imaging was performed from the skull base to vertex without intravenous administration of contrast. This CT examination was performed using dose optimization techniques as appropriate, variously including the following: *Automated exposure control *Adjustment of mA and/or kV according to patient size (this includes techniques or standardized protocols for targeted exams where dose is matched to indication/reason for exam; i.e. extremities or head) *Use of iterative reconstruction technique DLP: 705.77 mGy-cm FINDINGS: The bony calvarium is intact. The skull base is intact. Soft tissue contusion in the nose extending to the base. No hematoma within the intraconal or the extraconal compartment. There is a soft tissue contusion in the inferior preseptal left periorbital region. The eyes are intact. No acute intracranial hemorrhage, mass effect, midline shift, hydrocephalus or herniation. Martines-white matter differentiation is normal. Posterior cranial fossa contents demonstrated no acute intracranial hemorrhage or mass effect. Sellar/suprasellar region demonstrated no gross masses or hemorrhage. Craniocervical junction is intact. There is a thickened bony calvarium. CT/CT head/brain wo IV con IMPRESSION: No acute fracture, bony calvarium. No acute intracranial hemorrhage. Please refer to CT maxillofacial bones. Electronically signed by: Yusuf Fletcher MD 12/07/2024 11:39 AM [facility]
[2024-12-07 09:36] VITALS: BP 108/63; PULSE 117; RESP 18; TEMP 36.4; O2SAT 99; BMI 22.5
--- NOTE | 2024-12-07 10:36 | ED_ITS ---
HPI - General Adult General Chief complaint: Fall Stated complaint: fall Time Seen by Provider: 12/07/24 10:22 Source: patient Mode of arrival: ambulatory Limitations: no limitations History of Present Illness ED Provider: Hermilo Fishman HPI narrative: 54 yold male with pmh of Schizoaffective disorder, intellectual disability, HTN, depression presents to the ED for evaluation for head injury. patient fell last night and hit his head on the bedframe. [facility] staff states fall was witnessed last night by group staff member. [facility] staff denies any physical assault. they states patient has history of Falling. They states patient has been at baseline since fall Related Data Home Medications ?Medication ?Instructions ?Recorded ?Confirmed benztropine 1 mg tablet 1 tab PO BID 05/03/22 08/15/22 docusate sodium 50 mg/5 mL oral 10 ml PO DAILY 05/03/22 08/15/22 liquid (Docu) donepezil 5 mg tablet 1 tab PO DAILY 05/03/22 08/15/22 haloperidol 10 mg tablet 1 tab PO BID 05/03/22 08/15/22 haloperidol 5 mg tablet 1 tab PO BID 05/03/22 08/15/22 levothyroxine 88 mcg tablet 1 tab PO DAILY 05/03/22 08/15/22 lorazepam 1 mg tablet 1 tab PO DAILY 05/03/22 08/15/22 paroxetine HCl 40 mg tablet 1 tab PO DAILY 05/03/22 08/15/22 acetaminophen 325 mg tablet 650 mg PO Q6H PRN PAIN/FEVER 05/25/22 08/15/22 (Tylenol) ammonium lactate 12 % topical cream 1 applic topical DAILY PRN Dry Skin 05/25/22 08/15/22 guaifenesin 100 mg/5 mL oral liquid 200 mg PO Q4H PRN Cough 05/25/22 08/15/22 ibuprofen 200 mg tablet 200 mg PO Q4H PRN PAIN/FEVER 05/25/22 08/15/22 lorazepam 1 mg tablet 1 tab PO Q6H PRN Anxiety 05/25/22 08/15/22 Previous Rx's ?Medication ?Instructions ?Recorded carbamazepine 200 mg tablet 400 mg (2 x 200 mg) PO BID #60 tabs 05/08/22 olanzapine 5 mg tablet 5 mg PO BID #14 tabs 05/26/22 Allergies Allergy/AdvReac Type Severity Reaction Status Date / Time latex [LATEX] Allergy Unknown NOT Verified 12/07/24 09:40 APPLICABLE From SEROQUEL Allergy Unknown UNKNOWN Uncoded 07/19/20 15:21 SEASONAL ALLERGIES Allergy Unknown UNKNOWN Uncoded 07/19/20 15:21 Review of Systems 2 Review of Systems: Fall, head injury Yes all other systems are reviewed and are negative [facility] Past Medical History Medical History Dementia Depressive disorder Diabetes Diabetic retinopathy Hypothyroid Mild intellectual disabilities Psychotic disorder PTSD (post-traumatic stress disorder) Schizoaffective disorder, bipolar type Social History Social History Alcohol intake: never Patient Tobacco Use Status: Tobacco use Unknown Physical Exam ED Vital Signs: Vital Signs - 24 hr 12/07/24 09:36 12/07/24 13:45 Temperature 97.5 F 98.1 F Pulse Rate 117 H 113 H Respiratory Rate 18 20 Blood Pressure 108/63 116/71 Pulse Oximetry 99 97 Oxygen Delivery Method Room Air Room Air BMI result Body Mass Index 22.5 Const General: cooperative, healthy appearing, comfortable, no acute distress, well developed, alert and awake Orientation/consciousness: patient oriented x3 HENMT Head: Yes normal to inspection, Yes No palpable skull fracture present and Yes normocephalic Head images: 2 1. positive for left lower eyelid laceration. 2. positive for ecchyomsis and swelling on palpation Eyes Eyes/upper lids images: 2 1. positive for eyelid laceration Neck Neck: Yes normal visual inspection, Yes full ROM, Yes no lymphadenopathy, Yes no meningeal signs, Yes trachea midline, Yes supple, No anterior neck swelling and No tender Chest Chest palpation & inspection: normal inspection of the chest and normal palpation of entire chest wall Resp Effort & Inspection: normal respiratory effort and able to speak in complete sentences Auscultation: clear to auscultation bilaterally Cardio Jugular venous distension: no JVD Heart sounds: S1 normal heart sound present and S2 normal heart sound present GI Inspection: Yes normal to inspection Palpation (GI): Soft to palpation, not firm, nontender, no guarding and not rigid General: Yes no CVA tenderness Back/Spine/Pelvis Back: no CVA tenderness and No back tenderness Skin General skin exam: no rashes or lesions noted, elasticity normal and turgor normal Neuro General: patient oriented x3, gait normal, tone normal, moves all extremities, Normal light touch and pain sensation, no meningeal signs, no focal motor deficits, CN's II-XI intact bilaterally and normal sensation to monofilament Extrem General: Yes normal to inspection, Yes full ROM and Yes capillary refill normal Psych Appearance: grossly normal, well kempt and not disheveled Medications Administered Discontinued Medications Generic Name Dose Route Start Last Admin Trade Name Arely PRN Reason Stop Dose Admin Diphtheria/Tetanus/Acell Pertussis 0.5 ml 12/07/24 12:37 12/07/24 13:17 Diphth,Pertus(Acell),Tet Adult 0.5 Ml Syringe IM 12/07/24 12:38 0.5 ml .ONCE ONE Administration Lidocaine/Epinephrine 10 ml 12/07/24 11:54 12/07/24 11:55 Lidocaine Hcl 1%/Epi 1:100,000 10 Ml Vial INFILTRATI 12/07/24 11:55 10 ml ONCE ONE Administration Medical Decision Making Medical Decision Making [facility] Narrative: 52-year-old male presents to the ED for evaluation of head injury after falling last night hitting head on bed frame. Patient has left eyelid laceration. Patient will be sent for imaging. Eyes for brother and the retirement staff patient is at baseline. Whole-body evaluated and negative for signs of life- threatening etiology. 11:38pm: Dr. Gee use came and evaluated patient's eyelids laceration and recommend suture repair. Eyelid laceration not close to the margins. Area cleaned. 1:11pm: Lidocaine 1%/epi 6ml was used for local injection. Size 6 nylon sutures were used. 4 sutures were placed. Images were negative for any fracture, brain bleed, or neck fractures. Patient's sister was bedside and retirement staff were informed of worrisome signs or return to bring the patient to the ED immediately. You were informed for sutures should be removed in 5 days. Not suspecting ND, PE, stroke, pneumothorax, hemothorax, intra-abdominal traumatic etiology, or any other life-threatening etiology. Differential Diagnosis Differential Diagnoses: The differential diagnosis associated with the presentation includes (Brain fracture neck fracture facial fracture brain bleed) Admission/Observation Consideration of admission/observation: Escalation of care including admission/observation considered Lab Data [facility] Lab Attestation statement: I reviewed the patient's lab results. Labs: Lab Results 12/07/24 Range/Units 13:23 POC Glucose 115 (60-115) mg/dL Independent Interpretation I performed an independent interpretation of an: CT Scan Radiology Impression Discussion of test interpretation with radiology: I have reviewed the radiologist's reading. Independent Historian Clinical information obtained from an independent historian. History obtained from or confirmed by: Other ([facility] attendants, brother, sister) Discharge Plan Discharge Clinical Impression: Laceration of face Patient Disposition: Home, Self-Care Instructions: Laceration (ED) Additional Instructions: Sutures should be removed in 5 days or any urgent Care ED or primary care provider. Recommend follow-up with PCP. Return to the ED immediately for any nausea, vomiting, headache, altered mental status, redness pus discharge from sutures, or any other concerning symptoms. EXAMINATION: CT FACIAL BONES WITHOUT CONTRAST CLINICAL INFORMATION: Status post fall. COMPARISON: None available. TECHNIQUE: Contiguous axial images through the maxillofacial bones using 3 mm collimation with bone and soft tissue algorithm. Sagittal and coronal reformatted images acquired. This CT examination was performed using dose optimization techniques as appropriate, variously including the following: *Automated exposure control *Adjustment of mA and/or kV according to patient size (this includes techniques or standardized protocols for targeted exams where dose is matched to indication/reason for exam; i.e. extremities or head) *Use of iterative reconstruction technique. DLP: 476.26 mGy centimeters. FINDINGS: Nasal bones, nasal septum and vomer are intact. The orbits are intact. The orbital fissures and orbital apices are intact. The zygomatic arcs are intact. The maxilla and pterygoid plates are intact. The mandible is intact. Soft tissue contusion involving the nose and inferior preseptal left periorbital premaxilla. The eyes are intact. No hematoma within the intraconal or the extraconal compartments. Mucosal thickening without air-fluid levels in the ethmoid air cells. CT/CT facial bones wo IV con IMPRESSION: No acute fracture, maxillofacial bones. Soft tissue contusion/hematoma, nose and preseptal left orbital. Electronically signed by: Yusuf Fletcher MD 12/07/2024 11:43 AM [facility] Dictated By: Yusuf Ba MD Signed By: <Electronically signed by Yusuf Gibson MD in OV> 12/07/24 1143 DD/ 1045 TD/TT: 12/07/24 1119 Transcriptionis EXAMINATION: CT HEAD WITHOUT CONTRAST CLINICAL INFORMATION: fall COMPARISON: June 18, 2021 TECHNIQUE: Contiguous axial imaging was performed from the skull base to vertex without intravenous administration of contrast. This CT examination was performed using dose optimization techniques as appropriate, variously including the following: *Automated exposure control *Adjustment of mA and/or kV according to patient size (this includes techniques or standardized protocols for targeted exams where dose is matched to indication/reason for exam; i.e. extremities or head) *Use of iterative reconstruction technique DLP: 705.77 mGy-cm FINDINGS: The bony calvarium is intact. The skull base is intact. Soft tissue contusion in the nose extending to the base. No hematoma within the intraconal or the extraconal compartment. There is a soft tissue contusion in the inferior preseptal left periorbital region. The eyes are intact. No acute intracranial hemorrhage, mass effect, midline shift, hydrocephalus or herniation. Martines-white matter differentiation is normal. Posterior cranial fossa contents demonstrated no acute intracranial hemorrhage or mass effect. Sellar/suprasellar region demonstrated no gross masses or hemorrhage. Craniocervical junction is intact. There is a thickened bony calvarium. CT/CT head/brain wo IV con IMPRESSION: No acute fracture, bony calvarium. No acute intracranial hemorrhage. Please refer to CT maxillofacial bones. Electronically signed by: Yusuf Fletcher MD 12/07/2024 11:39 AM [facility] Dictated By: Yusuf Ba MD Signed By: <Electronically signed by Yusuf Gibson MD in OV> 12/07/24 1139 DD/ 1045 TD/TT: 12/07/24 1119 Screen Printing Inspector: CT CERVICAL SPINE WITHOUT CONTRAST CLINICAL INFORMATION: Status post fall. COMPARISON: None available. TECHNIQUE: Contiguous axial images through the cervical spine using 3 mm collimation with bone and soft tissue algorithm. Sagittal and coronal reformatted images acquired. This CT examination was performed using dose optimization techniques as appropriate, variously including the following: *Automated exposure control *Adjustment of mA and/or kV according to patient size (this includes techniques or standardized protocols for targeted exams where dose is matched to indication/reason for exam; i.e. extremities or head) *Use of iterative reconstruction technique DLP: 335.18 mGy centimeter. FINDINGS: Limited by patient's positioning in the CT scanner. Craniocervical junction is intact. There is normal alignment of the vertebral bodies and the facet joints. Marginal osteophyte formation and endplate sclerosis and decreased intervertebral disc height at C6-7 and to a lesser extent C5-6, C4-5 and C7-T1. Reverse curvature apex at C6. Ankylosis of the right C2-3 facet. Rudimentary ribs of T1 versus supernumerary cervical vertebra. C1 is intact. C2 is intact. C3 is intact. C4 is intact. C5 is intact. C6 is intact. C7 is intact No gross prevertebral compartment hematoma. Tympanic cavities and mastoid air cells are aerated. CT/CT cervical spine wo IV con IMPRESSION: Multilevel spondylosis without acute fracture or trauma-related listhesis. Fleischner guidelines were followed. Electronically signed by: Yusuf Fletcher MD 12/07/2024 11:33 AM [facility] Dictated By: Yusuf Ba MD Signed By: <Electronically signed by Yusuf Gibson MD in OV> 12/07/24 1133 DD/ 1045 TD/TT: 12/07/24 1119 Screen Printing Inspector: Prescriptions: No Action docusate sodium [Docu] 50 mg/5 mL liquid 10 ml PO DAILY donepezil 5 mg tablet 1 tab PO DAILY haloperidol 5 mg tablet 1 tab PO BID levothyroxine 88 mcg tablet 1 tab PO DAILY haloperidol 10 mg tablet 1 tab PO BID benztropine 1 mg tablet 1 tab PO BID lorazepam 1 mg tablet 1 tab PO DAILY paroxetine HCl 40 mg tablet 1 tab PO DAILY carbamazepine 200 mg Tablet 400 mg PO BID Qty: 60 0RF acetaminophen [Tylenol] 325 mg Tablet 650 mg PO Q6H PRN (Reason: PAIN/FEVER) guaifenesin [Robitussin] 100 mg/5 mL Liquid 200 mg PO Q4H PRN (Reason: Cough) ibuprofen 200 mg Tablet 200 mg PO Q4H PRN (Reason: PAIN/FEVER) ammonium lactate 12 % cream 1 applic topical DAILY PRN (Reason: Dry Skin) lorazepam 1 mg tablet 1 tab PO Q6H PRN (Reason: Anxiety) olanzapine 5 mg tablet 5 mg PO BID Qty: 14 0RF Interventions: ED Discharge Assessment Last Done: 12/07/24 13:45 Discharge Date/Time: 12/07/24 13:47 Print Language: Jordanian
[2024-12-07] MEDS: Lidocaine HCl 1%/Epi 1:100,000 10 ML VIAL INFILTRATI (11:55)
[2024-12-07] MEDS: Diphth,Pertus(ACell),Tet Adult 0.5 ML SYRINGE IM (13:17)
--- NOTE | 2024-12-07 13:24 | PC.NURSE ---
POC taken per family member's request. Stating that they would like a POC check b/c pt. has not eaten all day. POC = 115
[2024-12-07 13:26] LABS: Glucose, Whole Blood 115 mg/dL (60-115)
[2024-12-07 13:45] VITALS: BP 116/71; PULSE 113; RESP 20; TEMP 36.7; O2SAT 97
--- NOTE | 2024-12-07 13:47 | PC.NURSE ---
[facility] aware of pt.'s HR prior to d/c. Per DES ROACH to continue d/c.
== END 2024-12-07 13:47 | disposition home or self-care (01) ==
PROVIDERS: Emergency Provider Emergency Medicine; PCP Internal Medicine
DX: S01.412A Laceration without foreign body of left cheek and temporomandibular area, initial encounter (principal); S01.112A Laceration without foreign body of left eyelid and periocular area, initial encounter; W19.XXXA Unspecified fall, initial encounter; Y93.9 Activity, unspecified; Y92.9 Unspecified place or not applicable; Y99.9 Unspecified external cause status; Z23 Encounter for immunization; I10 Essential (primary) hypertension; F25.9 Schizoaffective disorder, unspecified; Z79.899 Other long term (current) drug therapy
CPT/HCPCS: 70450; 70486; 72125; 82947; 90471; 90715; 99282; 99284; J2004

== ENCOUNTER → 2024-12-07 10:35 | Outpatient (BNV) | payer MEDICARE, MEDICAID, SELFPAY | PROVIDERS: Emergency Provider Emergency Medicine; PCP Internal Medicine; Visit Provider Radiology Diagnostic Radiology | DX: Z03.89 Encounter for observation for other suspected diseases and conditions ruled out (principal) | CPT/HCPCS: 70450; 70486; 72125 ==

== ENCOUNTER 2025-04-07 19:58 | Emergency (ER) | payer MEDICARE, MEDICAID, SELFPAY ==
--- NOTE | ~2025-04-07 | XR_ITS ---
CLINICAL HISTORY: swelling redness 1-2 digits 3 view left hand Comparison: None Findings: Fingers are contracted, limiting evaluation. No acute fracture or dislocation. Radiocarpal and interphalangeal osteoarthritis. No soft tissue gas or radiographic evidence of osteomyelitis. IMPRESSION: 1. No acute osseous injury. This document has been electronically signed by: Brody Baum MD on 04/07/2025 20:59:17
--- NOTE | ~2025-04-07 | XR_ITS ---
CLINICAL HISTORY: Thumb laceration 3 view left hand Comparison: None Findings: Small osseous fragment at the 1st interphalangeal joint on the oblique view, this could be an ossicle or small fracture. In retrospect, this was present on the earlier radiograph. Osteoarthritis of the interphalangeal and radiocarpal joints. No dislocation. No soft tissue gas or radiopaque foreign body. IMPRESSION: 1. Small osseous fragment at the 1st interphalangeal joint, possibly representing an ossicle or small fracture This document has been electronically signed by: Brody Baum MD on 04/08/2025 02:05:36
[2025-04-07 20:05] VITALS: BP 122/75; PULSE 106; RESP 16; TEMP 36.2; O2SAT 98; BMI 24.2
--- NOTE | 2025-04-07 20:16 | ED_ITS ---
HPI - Extremity Problem General Chief complaint: Extremity Injury, Upper Stated complaint: Left hand lac Time Seen by Provider: 04/08/25 01:08 History of Present Illness ED Provider: Dada Sal MD HPI Narrative: This is a pleasant 54-year-old male with intellectual disability, schizoaffective disorder, remote left humeral fracture which has left him paralyzed in the left upper extremity he often wears brace or stabilize her per staff members in the left upper arm where he has a chronic deformity. He has contracted distally in left hand recently within the last 48 hours the staff found a swollen left thumb with an ulcer and/or open sore or wound the crease of the 1st MCP left side. Patient offers nothing to the history due to cognitive impairment Related Data Home Medications ?Medication ?Instructions ?Recorded ?Confirmed benztropine 1 mg tablet 1 tab PO BID 05/03/22 08/15/22 docusate sodium 50 mg/5 mL oral 10 ml PO DAILY 05/03/22 08/15/22 liquid (Docu) donepezil 5 mg tablet 1 tab PO DAILY 05/03/22 08/15/22 haloperidol 10 mg tablet 1 tab PO BID 05/03/22 08/15/22 haloperidol 5 mg tablet 1 tab PO BID 05/03/22 08/15/22 levothyroxine 88 mcg tablet 1 tab PO DAILY 05/03/22 08/15/22 lorazepam 1 mg tablet 1 tab PO DAILY 05/03/22 08/15/22 paroxetine HCl 40 mg tablet 1 tab PO DAILY 05/03/22 08/15/22 acetaminophen 325 mg tablet 650 mg PO Q6H PRN PAIN/FEVER 05/25/22 08/15/22 (Tylenol) ammonium lactate 12 % topical cream 1 applic topical DAILY PRN Dry Skin 05/25/22 08/15/22 guaifenesin 100 mg/5 mL oral liquid 200 mg PO Q4H PRN Cough 05/25/22 08/15/22 ibuprofen 200 mg tablet 200 mg PO Q4H PRN PAIN/FEVER 05/25/22 08/15/22 lorazepam 1 mg tablet 1 tab PO Q6H PRN Anxiety 05/25/22 08/15/22 Previous Rx's ?Medication ?Instructions ?Recorded carbamazepine 200 mg tablet 400 mg (2 x 200 mg) PO BID #60 tabs 05/08/22 olanzapine 5 mg tablet 5 mg PO BID #14 tabs 05/26/22 cefadroxil 500 mg capsule 500 mg PO BID 5 days #10 caps 04/08/25 Allergies Allergy/AdvReac Type Severity Reaction Status Date / Time latex [LATEX] Allergy Unknown NOT Verified 04/07/25 20:11 APPLICABLE From SEROQUEL Allergy Unknown UNKNOWN Uncoded 07/19/20 15:21 SEASONAL ALLERGIES Allergy Unknown UNKNOWN Uncoded 07/19/20 15:21 [facility] Past Medical History Medical History Dementia Depressive disorder Diabetes Diabetic retinopathy Hypothyroid Mild intellectual disabilities Psychotic disorder PTSD (post-traumatic stress disorder) Schizoaffective disorder, bipolar type Social History Social History Alcohol intake: never Patient Tobacco Use Status: Tobacco use Unknown Smoked in Last 30 Days: No Use of substances other than those prescribed or required for medical reasons: No Advance Directives: No Advance Directives Information Provided: No Do you have a plan to hurt others: No Plan Physical Exam 2 Vital Signs: Vital Signs: Last Vital Signs Temp 98.0 F 04/08/25 02:03 Pulse 92 04/08/25 02:03 Resp 14 04/08/25 02:03 BP 117/70 04/08/25 02:03 Pulse Ox 97 04/08/25 02:03 O2 Del Method Room Air 04/08/25 02:03 BMI result Body Mass Index 24.2 Const: Other: EXAM: Gen: Alert, awake, well appearing, well hydrated. Head: Atraumatic Eyes: Anicteric, Normal conjunctiva. ENT: Moist mucosa, no pallor. ? Neck: Supple. Respiratory: Breathing comfortably, No distress.Clear to auscultation bilaterally, symmetric chest expansion, No wheeze, rales, ronchi. Cardiovascular: Regular rate and rhythm. No murmurs or rub. Well perfused periphery, warm extremities. No edema. ? Abdominal: No FOCAL TENDERNESS. Soft, no objective distension. No palpable masses or obvious organomegaly. ?No guarding, no rebound tenderness or other peritoneal findings. : No flank tenderness. Neuro: Alert. Gross movement of all extremities intact. ? Psych: Calm. Cooperative. MSK: No grossly visible deformity. Deformed mid left humerus with atrophied musculature. Mild chronic appearing edema of the forearm with soft compartments. Hand is contracted there was no redness or warmth there is what appears to be subacute ecchymosis mild swelling of the left thumb. There is superficial ulceration appears to me most consistent with perhaps contracture pressure ulceration at this joint crease. There was no evidence of trauma nearby there is no active bleeding no purulence or discharge see the photo Vital signs: See flowsheet Course Course Course Narrative: 04/07/252015 DOC Massey This is a Rapid Medical Examination (RME) performed by Uday Rodriguez PA-C in triage. Full HPI, ROS, assessment and treatment plan per primary provider in the Main ED. Hx: 54 yo nonverbal male presents from long term w/ staff for eval of swelling/erythema to L thumb which staff noticed tihs morning. staff states patient has previous fracture to left arm . PE/vitals: L thumb erythematous, swollen, stuck in flexion. Plan: xrs, labs Medications Administered Discontinued Medications Generic Name Dose Route Start Last Admin Trade Name Freq PRN Reason Stop Dose Admin Acetaminophen 975 mg 04/08/25 01:16 04/08/25 01:58 Acetaminophen 325 Mg Tablet PO 04/08/25 01:17 975 mg ONCE ONE Administration Cephalexin HCl 500 mg 04/08/25 01:44 04/08/25 01:56 Cephalexin 500 Mg Capsule PO 04/08/25 01:45 500 mg ONCE ONE Administration Ketorolac Tromethamine 15 mg 04/08/25 01:16 04/08/25 02:02 Ketorolac Tromethamine 15 Mg/Ml Vial IVPUSH 04/08/25 01:17 Not Given ONCE ONE Medical Decision Making Medical Decision Making [facility] Narrative: [age] male with swelling appearance of bruising and possible ulcer or wound to the [place] left 1st MCP in the setting of chronic deformity and possible bracing or stabilization. No fever he labs and inflammatory markers were ordered prior to my arrival however I do not feel this is an infectious process the patient is afebrile there was no warmth or erythema or discharge. Plan for plain film to exclude digital fracture Bedside upper extremity DVT ultrasound Wound care with dressing Patient is paralyzed in left upper extremity chronically and has contracture. I do not think even if there was fracture there would be any benefit to orthopedic consultation or hand surgery. The patient may need additional wound care which I will instruct staff on discharge paperwork at his long term. Iodoform gauze dressing Lab Data 04/07/25 20:53 04/07/25 20:53 Labs: Lab Results 04/07/25 Range/Units 20:53 WBC 8.2 (4.8-10.8) X10*3/uL RBC 4.36 L (4.60-5.80) X10*6/uL Hgb 11.6 L (14.0-18.0) g/dl Hct 35.7 L (42.0-52.0) % MCV 81.9 (80.0-98.0) fL MCH 26.6 L (27.0-33.0) pg MCHC 32.5 (31.0-36.0) g/dl RDW 16.9 H (11.0-16.0) % Plt Count 301 (160-400) X10*3/uL MPV 9.6 (9.4-12.4) fL Immature Gran % (Auto) 0.2 (0.0-0.4) % Neut % (Auto) 65.3 (45-73) % Lymph % (Auto) 24.1 (20-40) % [place] % (Auto) 6.9 (2-11) % Eos % (Auto) 2.9 (0-4) % Baso % (Auto) 0.6 (0-2) % Lymph # (Auto) 2.0 (1.2-4.9) X10*3/uL [place] # (Auto) 0.6 (0.1-1.2) X10*3/uL Eos # (Auto) 0.2 (0.0-0.4) X10*3/uL Baso # (Auto) 0.1 (0.0-0.2) X10*3/uL Abs Immat Gran (auto) 0.02 (0.00-0.03) X10*3/uL Absolute Neuts (auto) 5.3 (2.0-8.3) x10*3/uL Absolute Nucleated RBC 0.000 (0.0-0.012) X10*3/uL Nucleated RBC % (auto) 0.0 (0.0-0.2) /100WBC ESR 17 H (0-15) MM/HR Sodium 142 (135-145) mmol/L Potassium 4.5 (3.3-5.1) mmol/L Chloride 105 (96-108) mmol/L Carbon Dioxide 25 (22-29) mmol/L Anion Gap 17 (12-20) BUN 17 H (9-16) mg/dL Creatinine 0.79 (0.5-1.4) mg/dL Estim Creat Clear Calc 95.1 Estimated GFR > 60 Random Glucose 123 H (60-115) mg/dL Calcium 9.7 (8.4-10.2) mg/dL Magnesium 1.6 (1.6-2.6) mg/dL Total Bilirubin 0.1 (0.0-1.0) mg/dL AST 23 (5-37) U/L ALT 10 (0-40) U/L Alkaline Phosphatase 124 H (39-117) U/L C-Reactive Protein 1.96 H (< or = 0.50) mg/dL Total Protein 7.3 (6.5-8.0) g/dL Albumin 4.5 (3.5-5.0) g/dL Procedures Procedure Narrative Procedure Narrative: EMERGENCY ULTRASOUND INTERPRETATION-Limited Point of Care Venous (DVT) [This study was ordered, performed, and interpreted by myself. The study reveals: Impression: NO EVIDENCE OF DVT. I RECOMMENDED TO THE PATIENT REPEAT ULTRASOUND IN ONE WEEK IF SYMPTOMS PERSIST.] [Indication: Laterality: LEFT Brachial vein: -Full Compressibility: YES -Clot Seen: NO Proximal brachial vein/axillary vein -Full Compressibility: YES -Clot Seen: NO Internal jugular vein -Full Compressibility: YES -Clot Seen: NO Other: Performed by: Dada Sal MD Images were stored CPT: 33917] Discharge Plan Discharge Clinical Impression: Finger wound, simple, open Patient Disposition: Home, Self-Care Instructions: Wound Infection (DC) Additional Instructions: _ DISCHARGE DIAGNOSES: Left thumb swelling and wound on the palmar aspect of the left thumb. Unclear cause probably traumatic injury less likely than infection HISTORY OF PRESENTATION: ?Several days of swelling and the finding of wound on the left finger EMERGENCY DEPARTMENT COURSE,TESTS, TREATMENTS: While in the ED today you had an ultrasound that has excluded a blood clot in the left arm. You had an x-ray that showed: Proximal phalanx fracture of the thumb You had lab work that was generally reassuring though some mild nonspecific elevation of inflammatory markers was present DISCHARGE MEDICATIONS: ?[We have made no changes to your regular medication regimen] we will add an antibiotic although we do not think this is acutely infected this antibiotic will help prevent infection FOLLOW-UP: ?Call your primary or general physician soon as possible to discuss your symptoms, your ED visit and to discuss follow up plans He is unlikely to need acute orthopedic care however if staff or the patient's family wish to have him follow up with Orthopedics that would be reasonable given the finger fracture orthopedic follow up as provided on this paperwork Please have the patient's primary doctor or other healthcare provider re- evaluate the patient's thumb wound and re-dress in 2 or 3 days INSTRUCTIONS ?& RETURN PRECAUTIONS: If any symptoms change first call your primary physician, if it is after-hours your primary doctors office should have a provider income tax consultant you can speak with. If the symptoms are severe or very concerning to you then call 911 or return to the ED. Severe swelling, redness, high fever, severe worsening of the thumb return back to the emergency department Dada Sal MD Emergency Physician [facility] Prescriptions: New cefadroxil 500 mg capsule 500 mg PO BID 5 Days Qty: 10 0RF No Action docusate sodium [Docu] 50 mg/5 mL liquid 10 ml PO DAILY donepezil 5 mg tablet 1 tab PO DAILY haloperidol 5 mg tablet 1 tab PO BID levothyroxine 88 mcg tablet 1 tab PO DAILY haloperidol 10 mg tablet 1 tab PO BID benztropine 1 mg tablet 1 tab PO BID lorazepam 1 mg tablet 1 tab PO DAILY paroxetine HCl 40 mg tablet 1 tab PO DAILY carbamazepine 200 mg Tablet 400 mg PO BID Qty: 60 0RF acetaminophen [Tylenol] 325 mg Tablet 650 mg PO Q6H PRN (Reason: PAIN/FEVER) guaifenesin [Robitussin] 100 mg/5 mL Liquid 200 mg PO Q4H PRN (Reason: Cough) ibuprofen 200 mg Tablet 200 mg PO Q4H PRN (Reason: PAIN/FEVER) ammonium lactate 12 % cream 1 applic topical DAILY PRN (Reason: Dry Skin) lorazepam 1 mg tablet 1 tab PO Q6H PRN (Reason: Anxiety) olanzapine 5 mg tablet 5 mg PO BID Qty: 14 0RF Referrals: [facility] [Provider Group] - None (Call for follow up) Interventions: ED Discharge Assessment Last Done: 04/08/25 02:03 Discharge Date/Time: 04/08/25 02:05 Print Language: Korean
[2025-04-07 21:07] LABS: MANUAL DIFF FLAG NO
[2025-04-07 21:08] LABS: Basophils Absolute Auto 0.1 X10*3/uL (0.0-0.2); Basophils Percent Auto 0.6 % (0-2); Eosinophils Absolute Auto 0.2 X10*3/uL (0.0-0.4); Eosinophils Percent Auto 2.9 % (0-4); Hematocrit 35.7 % (42.0-52.0); Hemoglobin 11.6 g/dl (14.0-18.0); Imm Gran Abs Auto 0.02 X10*3/uL (0.00-0.03); Imm Gran Pct Auto 0.2 % (0.0-0.4); Lymphocytes Percent Auto 24.1 % (20-40); Mean Corpuscular HGB Conc 32.5 g/dl (31.0-36.0); Mean Corpuscular Hemoglobin 26.6 pg (27.0-33.0); Mean Corpuscular Volume 81.9 fL (80.0-98.0); Mean Platelet Volume 9.6 fL (9.4-12.4); Monocytes Absolute Auto 0.6 X10*3/uL (0.1-1.2); Monocytes Percent Auto 6.9 % (2-11); Neutrophils Absolute Auto 5.3 x10*3/uL (2.0-8.3); Neutrophils Percent Auto 65.3 % (45-73); Platelet Count 301 X10*3/uL (160-400); Red Blood Count 4.36 X10*6/uL (4.60-5.80); Red Cell Distribution Width 16.9 % (11.0-16.0); White Blood Count 8.2 X10*3/uL (4.8-10.8)
[2025-04-07 21:22] LABS: Alanine Aminotransferase 10 U/L (0-40); Albumin Level 4.5 g/dL (3.5-5.0); Alkaline Phosphatase 124 U/L (39-117); Anion Gap 17 (12-20); Aspartate Amino Transferase 23 U/L (5-37); Bilirubin Total 0.1 mg/dL (0.0-1.0); Blood Urea Nitrogen 17 mg/dL (9-16); C Reactive Protein 1.96 mg/dL (< or = 0.50); Calcium 9.7 mg/dL (8.4-10.2); Carbon Dioxide 25 mmol/L (22-29); Chloride 105 mmol/L (96-108); Creatinine Clr Calc Pharmacy 95.1; Estimated Glomerular Filt Rate > 60; Glucose Random 123 mg/dL (60-115); Magnesium 1.6 mg/dL (1.6-2.6); Potassium 4.5 mmol/L (3.3-5.1); Sodium 142 mmol/L (135-145); Total Protein 7.3 g/dL (6.5-8.0)
[2025-04-07 21:44] LABS: Erythrocyte Sedimentation Rate 17 MM/HR (0-15)
[2025-04-08 00:30] VITALS: BP 117/70; PULSE 92; RESP 14; TEMP 36.7; O2SAT 97
--- NOTE | 2025-04-08 00:35 | PC.NURSE ---
Pt a&ox3, no signs of distress. Pt reports 10/10 left hand pain detention staff with pt, staff reports pt broke his left arm months ago and has been wearing a sleeve and today he noticed pt was bleeding from his hand. Left hand edematous and erythema noted Pt reports feeling in hand. Plan of care ongoing.
[2025-04-08] MEDS: cephALEXin 500 MG CAPSULE PO (01:56)
[2025-04-08] MEDS: Acetaminophen 325 MG TABLET 975 MG PO (01:58)
--- NOTE | 2025-04-08 02:02 | PC.NURSE ---
Pt requested tylenol. Pt medicated per [facility] Plan of care ongoing.
[2025-04-08 02:03] VITALS: BP 117/70; PULSE 92; RESP 14; TEMP 36.7; O2SAT 97
== END 2025-04-08 02:05 | disposition home or self-care (01) ==
PROVIDERS: Physician Assistant Medical; Emergency Provider Emergency Medicine
DX: S61.402A Unspecified open wound of left hand, initial encounter (principal); X58.XXXA Exposure to other specified factors, initial encounter; Y93.9 Activity, unspecified; Y92.9 Unspecified place or not applicable; Y99.9 Unspecified external cause status
CPT/HCPCS: 36415; 73130; 80053; 83735; 85025; 85652; 86140; 99284

== ENCOUNTER → 2025-04-07 20:11 | Outpatient (BNV) | payer MEDICARE, MEDICAID, SELFPAY | PROVIDERS: Visit Provider Radiology Diagnostic Radiology | DX: S61.012A Laceration without foreign body of left thumb without damage to nail, initial encounter (principal) | CPT/HCPCS: 73130 ==

== ENCOUNTER → 2025-04-08 00:33 | Outpatient (BNV) | payer MEDICARE, MEDICAID, SELFPAY | PROVIDERS: Emergency Provider Emergency Medicine; Visit Provider Radiology Diagnostic Radiology | DX: S62.617A Displaced fracture of proximal phalanx of left little finger, initial encounter for closed fracture (principal); M24.842 Other specific joint derangements of left hand, not elsewhere classified | CPT/HCPCS: 73130 ==